=== PATIENT | male | born 1965 | race Caucasian/White ===

== ENCOUNTER 2023-03-31 12:46 | Outpatient (RCR) | payer OTHER, SELFPAY ==
[2023-03-31 13:09] VITALS: BP 158/89; PULSE 99; RESP 16; BMI 32.8
--- NOTE | 2023-03-31 14:24 | HP.PCM_ITS ---
History of Present Illness Date of Service: 03/31/23 Chief Complaint: Left foot wound History of Wound: Left foot wound for 5 months Progress of Wound: Lane is a 58-year-old diabetic male presenting to the wound care center today for evaluation of his full-thickness ulceration to the left big toe of his left foot. Patient admits to being a diabetic with an A1c of 9.6%. He admits to not wearing diabetic shoes. He also admits that he does not check his blood sugar on a regular daily basis. Patient is in the process of getting a new glucose meter ready for daily checking. Patient has not had any treatment to his full-thickness ulceration to the left foot. He admits to burning and tingling secondary to neuropathy to his bilateral lower extremity. He denies any drainage from the wound. He has not taken any oral antibiotics for infection. He admits that the wound originally happened after wearing a pair of socks that got wet and rubbing in shoe gear while at work. He denies trauma. Denies constitutional symptoms. No other pedal complaints at this time. [facility] Medical History Arthritis Diabetes HTN (hypertension) Tear of meniscus of knee Home Medications glyburide 2.5 mg-metformin 500 mg tablet 2 tab PO BID 90 days #360 tabs 01/25/18 [History Last Taken Unknown] lisinopril 30 mg tablet 30 mg PO DAILY 90 days #90 tabs 01/25/18 [History Last Taken Unknown] pioglitazone 30 mg tablet 45 mg PO DAILY 90 days #90 tabs 01/25/18 [History Last Taken Unknown] atorvastatin 10 mg tablet (Lipitor) 10 mg PO DAILY 03/31/23 [History Last Taken Unknown] Allergy/AdvReac Type Severity Reaction Status Date / Time No Known Allergies Allergy Verified 03/31/23 13:20 Family History Other Cancer Heart disease Surgical History History of carpal tunnel surgery History of sinus surgery Social History Smoking Status: Never smoker alcohol intake: current alcohol intake frequency: a few times a week Alcohol type: beer and hard liquor Vital Signs Vital Signs Vital Signs: 03/31/23 13:09 Pulse Rate 99 Respiratory Rate 16 Blood Pressure 158/89 H Blood Pressure Mean 112 Blood Pressure Source Monitor Blood Pressure Position Sitting Blood Pressure Location Left Arm Oxygen Delivery Method Room Air Weight Weight: 116.12 kg Body Mass Index (BMI) 32.8 Physical Exam Narrative Vascular: DP and PT pulses are palpable. CFT is brisk. Evidence of blanchable erythema appreciated left hallux. Nonpitting edema appreciated to left lower extremity. Neurological: Light touch is intact. Protective sensation is absent. Patient does not respond to painful stimuli. Dermatological: Full-thickness ulceration to the plantar medial aspect of the left hallux measuring 1.9 x 1.1 x 0.6 cm. Evidence of exposure to muscle. Evidence of hyperkeratotic periwound. Blanchable erythema without proximal stre aking. No evidence of drainage or purulent drainage. No probe to bone. Excisional debridement down to and including subcutaneous tissue, fascia and muscle with a #15 blade to the left hallux full-thickness ulceration without incident. Predebridement measurement was 1.5 x 0.9 x 0.4 cm. Postdebridement measurement is 1.9 x 1.1 x 0.6 cm. Musculoskeletal: Decreased range of motion to the first metatarsal phalangeal joint as well as the IPJ of the left hallux. No pain with palpation of the full-thickness ulceration left hallux. No pain with calf pression. Debridement Note Debridement Note Debridement Free Text: Excisional debridement down to and including subcutaneous tissue, fascia and muscle with a #15 blade to the left hallux full-thickness ulceration without incident. Predebridement measurement was 1.5 x 0.9 x 0.4 cm. Postdebridement measurement is 1.9 x 1.1 x 0.6 cm. Post-Debridement Measurements and Additional Note: Post-Debridement Measurements/Treatment - Nurse 1 - General Ulcer Assessment Start: 03/31/23 13:08 Freq: Status: Active Protocol: ANA LUISA.LOWEXT Activity Type Activity Date Activity User E-sign Co-sign Detail Recorded Client Recorded Date Recorded By Document 03/31/23 13:09 [facility] Desktop 03/31/23 13:19 [facility] 03/31/23 13:09 WC - Today's Visit Information Type of service Initial Visit Arrival Mode Ambulatory Transfer Assistance None Patient Identification Verified (Name & Yes ) Patient Requires Transmission-Based No Precautions Height and Weight Height 6 ft 2 in Weight 116.12 kg Weight in Pounds 256.0 lbs Body Mass Index (BMI) 32.8 BMI Classification Obese BSA - Papo 2.41 Vital Signs Pulse Rate (60-100) 99 Pulse Location Monitor Respiratory Rate (12-18) 16 Respiratory rate source Observation Oxygen Delivery Method Room Air Blood Pressure (90/60-120/80) 158/89 H Blood Pressure Mean 112 Source Monitor Position Sitting Blood Pressure Location Left Arm History Since Last Visit- (Skip if this is Patient's initial visit) Left Footwear Regular Shoe Right Footwear Regular Shoe Pain Scale: 0-10 Numeric Is Patient Pain Free? Yes Lower Extremity Assessment/ Foot Assessment/ Toe Nail Assessment Right -Posterior Tibial Palpable Yes -Posterior Tibial Doppler Inaudible -Dorsalis Pedis Palpable Yes -Dorsalis Pedis Doppler Monophasic -Extremity Color Pale -Hair Growth on Legs No -Hair Growth on Toes No -Temperature of Extremity Warm -Other Deformity No -Prior Foot Ulcer No -Charcot Joint No -Prior Amputation No -Thick No -Discolored No -Deformed No -Improper Length & Hygeine No Left -Posterior Tibial Palpable Yes -Posterior Tibial Doppler Inaudible -Dorsalis Pedis Palpable Yes -Dorsalis Pedis Doppler Monophasic -Extremity Color Pale -Hair Growth on Legs No -Hair Growth on Toes No -Temperature of Extremity Warm -Other Deformity No -Prior Foot Ulcer No -Charcot Joint No -Prior Amputation No -Thick No -Discolored No -Deformed No -Improper Length & Hygeine No Communication Assessment Preferred language [place] Deburring Technician Required No Able to Read Yes Able to Write Yes Communication Tools None Right Hearing Abillity Normal Left Hearing Abillity Normal Visual Assistive Devices Glasses Teaching Assessment Preferences Verbal,Written, Audio/Visual, Demonstration Barriers to Learning None Readiness To Learn Excellent Willingness to Engage in Self Management High Activies Readiness to Engage in Self Management High Activities Anxiety Level Calm Cooperation Cooperative Perception Coherent Interest in Health Problem Asks Questions Education Importance Acknowledges Need Does Patient Smoke tobacco or other No substances Smoking Status Never smoker Is Patient Diabetic Yes Functional Assessment Recent Decline in Ability to Perform Denies Any Declines Culture/Religion/Clinical Research Scientist Cultural/Religion Needs that may affect No Treatment Plan Teaching: Wound Center *Welcome to the Wound Center -Person Taught Patient -Teaching Method Discussion -Response to teaching Verbalize understanding Welcome to the Wound Care Center English OROSCO - Nurse 1 - General Ulcer Measurement Start: 03/31/23 13:08 Freq: Status: Active Protocol: Activity Type Activity Date Activity User E-sign Co-sign Detail Recorded Client Recorded Date Recorded By Document 03/31/23 13:09 [facility] Desktop 03/31/23 13:19 [facility] 03/31/23 13:09 Wound Center Nurse 1 #1- L PLANTAR HALLUX -Combined with other wound No -Current Size (cm) - Length 1.2 -Current Size (cm) - Width 0.8 -Current Size (cm) - Depth 0.5 -Total Square Cm 0.96 -Date of Last Picture (Recall this 03/31/23 field) -Photo Taken Yes -Epithelialization None Present -Tunneling No -Undermining/Tunneling No -Circular Undermining No -Exudate Amt Medium -Exudate Type Serosanguineous -Wound Margin Distinct, Outline Attached -Granulation Amt Large (67-100%) -Granulation Quality Red -Slough/Fibrin Yes -Necrosis Amt Small (1-33%) -Necrotic Tissue Type Adherent Slough -Texture (Sarah-wound Skin Appearance) Assessed -Moisture (Sarah-wound Skin Appearance) Assessed, Maceration -Color (Sarah-wound Skin Appearance) Assessed -Temperature (Sarah-wound Skin No Abnormality Appearance) (Pt Warm) -Tenderness on Palpation (Sarah-wound No Skin Appearance) -Ulcer Cleansing Rinsed/ Irrigated with Saline -Foul Odor after Cleansing No -Anesthetic Used 5% Lidocaine Gel ANA LUISA - Nurse 2 - General Ulcer CM Notes Start: 03/31/23 13:08 Freq: Status: Active Protocol: Activity Type Activity Date Activity User E-sign Co-sign Detail Recorded Client Recorded Date Recorded By Document 03/31/23 13:40 Laptop 03/31/23 13:51 03/31/23 13:40 Wound Center Nurse 2 -Time 13:47 -Correct Patient Yes -Correct Side, Site, Position Yes -Correct Procedure Yes -Procedure Performed Yes -Type of Procedure Debridement -Clinical Debridement Muscle / Fascia -Tissue Removed Muscle -Post Debridement (cm) - Length 1.9 -Post Debridement (cm) - Width 1.1 -Post Debridement (cm) - Depth 0.6 -Total Square (Post) (cm) 2.09 -Area of Debridement (cm) - Length 1.9 -Area of Debridement (cm) - Width 1.1 -Total Square (Area) (cm) 2.09 -Tunneling No -Undermining/Tunneling No -Circular Undermining No -Wound/Ulcer Outcome Not Healed -Ulcer Cleansing Rinsed/ Irrigated with Saline -Foul Odor after Cleansing No -Bioengineered Tissue No -Bleeding Controlled with Pressure -Treatment Response Procedure Tolerated Well -Offloading No -Debridement - Muscle / Fascia, 1st Yes 20sq cm Pain Scale: 0-10 Numeric Is Patient Pain Free? Yes WC - Nurse 3 - General Ulcer D/C NN Start: 03/31/23 13:08 Freq: Status: Active Protocol: Activity Type Activity Date Activity User E-sign Co-sign Detail Recorded Client Recorded Date Recorded By Document 03/31/23 13:59 KW Desktop 03/31/23 14:01 KW 03/31/23 13:59 Wound Care Center Nurse 3 #1- L PLANTAR HALLUX -Primary Dressing Applied Promogran Melinda Matter -Primary Dressing Covered/Secured with Dry Gauze, Secured with Tape -Promogran Melinda Matter 1 Pain Scale: 0-10 Numeric Is Patient Pain Free? 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 All findings were discussed with the patient. All questions were answered to the patient's satisfaction. Excisional debridement down to and including subcutaneous tissue, fascia and muscle with a #15 blade to the left hallux full-thickness ulceration without incident. Predebridement measurement was 1.5 x 0.9 x 0.4 cm. Postdebridement measurement is 1.9 x 1.1 x 0.6 cm. Full-thickness ulceration was dressed with Melinda, Betadine paint dry sterile dressing. Will begin authorization through the patient's insurance for [employer], home dressing supplies. Patient will be given the supplies described above to be changed daily or every other day. Patient is given the go ahead to shower as long as he is using antibacterial soap and washing his left toe last and then drying immediately prior to dressing changes. Educated the patient on strict glycemic control, his blood sugar needs to be below 150 mg/dL daily especially when checked. Educated the patient that if his blood sugar is greater than 200 mg/dL he will not heal for 24 hours. Patient can wear his regular athletic shoes as long as he has a sterile dressing donned to the left hallux. He is to continue to check his feet twice per day and apply lotion. We will get baseline 3 view foot films to the left foot for surgical planning. A culture was taken to rule out any soft tissue infection to the left great toe. We will get baseline vascular and venous studies to the bilateral lower extremities. He was also educated to the patient conservative versus surgical care and my recommendation is to move forward with surgical intervention to the left great toe consisting of IPJ arthroplasty to increase range of motion to the hallux to help heal his wound. Patient was understanding of this. I will begin booking the patient as able can take anywhere between 3 to 4 weeks to get the patient on the surgery schedule. Follow-up at the wound care center with Dr. Fajardo in 1 week. (2) Acute painful diabetic polyneuropathy: CODE(S): E11.42 - Type 2 diabetes mellitus with diabetic polyneuropathy
[2023-04-14 09:55] VITALS: BP 144/73; PULSE 79; RESP 18; TEMP -7.7; TEMP 18; BMI 32.8
== END 2023-04-04 23:59 | disposition home or self-care (01) ==
LOC: WC 12:46
PROVIDERS: PCP Family Medicine; Referring Provider Nurse Practitioner Family; Visit Provider Podiatrist Foot & Ankle Surgery
DX: E11.621 Type 2 diabetes mellitus with foot ulcer (principal); L97.523 Non-pressure chronic ulcer of other part of left foot with necrosis of muscle; E11.42 Type 2 diabetes mellitus with diabetic polyneuropathy; I10 Essential (primary) hypertension; Z79.84 Long term (current) use of oral hypoglycemic drugs; Z79.899 Other long term (current) drug therapy
CPT/HCPCS: 11043; 87070; 87075; 87077; 87101; 87186; 87205; 99214; G0463

== ENCOUNTER 2023-05-05 10:00 | Outpatient (RCR) | payer OTHER, SELFPAY ==
[2023-04-05 00:50] VITALS: BP 158/89; PULSE 99; RESP 16; BMI 32.8
[2023-04-07 09:54] VITALS: BP 149/80; PULSE 89; RESP 18; TEMP 35.6; BMI 32.8
--- NOTE | 2023-04-07 11:39 | PN.PCM_ITS ---
History of Present Illness Date of Service: 04/07/23 Chief Complaint: Left foot wound History of Wound: Left foot wound for 5 months Subjective Subjective Mr. Sherman is a 58-year-old diabetic male presenting to clinic today for follow-up of left full-thickness ulceration, radiograph evaluation and antibiotic/microbiology review. Patient has been doing home dressing changes as instructed. His blood sugar today was 109 mg/dL. He does admit to having blood sugar as high as 177 mg/dL. He continues to work uneventfully. He denies trauma. Denies constitutional symptoms. No other pedal complaints at this time. Objective Data Objective Data Vital Signs: Vital Signs Temp Pulse Resp BP O2 Del Method 96.1 F L 89 18 149/80 H Room Air 04/07/23 09:54 04/07/23 09:54 04/07/23 09:54 04/07/23 09:54 04/07/23 09:54 Oxygen Delivery Method Room Air Weight: 116.12 kg Body Mass Index (BMI) 32.8 Physical Exam Narrative Vascular: DP and PT pulses are palpable. CFT is brisk. Evidence of blanchable erythema appreciated left hallux. Nonpitting edema appreciated to left lower extremity. Neurological: Light touch is intact. Protective sensation is absent. Patient does not respond to painful stimuli. Dermatological: Full-thickness ulceration to the plantar medial aspect of the left hallux measuring 1.6 x 0.7 x 0.3 cm. Evidence of exposure to muscle. Evidence of hyperkeratotic periwound. Blanchable erythema without proximal streaking. No evidence of drainage or purulent drainage. No probe to bone. Excisional debridement down to and including subcutaneous tissue, fascia and muscle with a #15 blade to the left hallux full-thickness ulceration without incident. Predebridement measurement was 1.4 x 0.6 x 0.2 cm. Postdebridement measurement is 1.6 x 0.7 x 0.3 cm. Musculoskeletal: Decreased range of motion to the first metatarsal phalangeal joint as well as the IPJ of the left hallux. No pain with palpation of the full-thickness ulceration left hallux. No pain with calf pression. Debridement Note Debridement Note Debridement Free Text: Excisional debridement down to and including subcutaneous tissue, fascia and muscle with a #15 blade to the left hallux full-thickness ulceration without incident. Predebridement measurement was 1.4 x 0.6 x 0.2 cm. Postdebridement measurement is 1.6 x 0.7 x 0.3 cm. 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 ) Arrival Mode Ambulatory Accompanied by Patient Identification Verified (Name & Yes ) Height and Weight Body Mass Index (BMI) 32.8 BMI Classification Obese Vital Signs Temperature (97.8 F-99.1 F) 96.1 F L Temperature Source Temporal Pulse Rate (60-100) 89 Pulse Location Monitor Respiratory Rate (12-18) 18 Respiratory rate source Observation Oxygen Delivery Method Room Air Blood Pressure (90/60-120/80) 149/80 H Blood Pressure Mean (mm Hg) 103 Source Monitor Position Semi-Fowlers Blood Pressure Location Left Arm History Since Last Visit- (Skip if this is Patient's initial visit) Have you changed medications since your No last visit? Any new allergies or adverse reactions No Had a fall/change in ADL's that may No increase risk of falls Signs or symptoms of abuse and/or No neglect since last visit Have you been in the hospital since your No last visit? Has dressing in place as prescribed Yes Has compression in place as prescribed N/A Has offloadiing in place as prescribed N/A Experienced any changes in pain level or No management Left Footwear Regular Shoe Right Footwear Regular Shoe Pain Scale: 0-10 Numeric Is Patient Pain Free? Yes - Nurse 1 - General Ulcer Measurement Start: 04/07/23 09:54 Freq: Status: Active Protocol: Activity Type Activity Date Activity User E-sign Co-sign Detail Recorded Client Recorded Date Recorded By Document 04/07/23 09:54 KW [employer] 04/07/23 10:00 KW 04/07/23 09:54 Wound Center Nurse 1 #1- L PLANTAR HALLUX -Current Size (cm) - Length 1.0 -Current Size (cm) - Width 0.8 -Current Size (cm) - Depth 0.2 -Total Square Cm 0.80 -Exudate Amt Small -Exudate Type Serosanguineous -Wound Margin Distinct, Outline Attached -Granulation Amt Medium (34-66%) -Granulation Quality [place] -Necrosis Amt Small (1-33%) -Necrotic Tissue Type Adherent Slough -Texture (Sarah-wound Skin Appearance) Assessed,Callus -Moisture (Sarah-wound Skin Appearance) Assessed, Maceration -Color (Sarah-wound Skin Appearance) Assessed -Temperature (Sarah-wound Skin No Abnormality Appearance) (Pt Warm) -Ulcer Cleansing Rinsed/ Irrigated with Saline -Foul Odor after Cleansing No -Anesthetic Used 5% Lidocaine Gel WC - Nurse 2 - General Ulcer CM Notes Start: 04/07/23 09:54 Freq: Status: Active Protocol: Activity Type Activity Date Activity User E-sign Co-sign Detail Recorded Client Recorded Date Recorded By Document 04/07/23 10:20 LUL Laptop 04/07/23 10:21 LUL Edit Result 04/07/23 10:20 JF (1) Laptop 04/07/23 10:24 JF (1) #1- L PLANTAR HALLUX - Clinical Debridement Subcutaneous => Muscle / Fascia - Tissue Removed Subcutaneous => Muscle - Post Debridement (cm) - Length => 1.6 - Post Debridement (cm) - Width => 0.7 - Post Debridement (cm) - Depth => 0.3 - Total Square (Post) (cm) => 1.12 - Area of Debridement (cm) - Length => 1.6 - Area of Debridement (cm) - Width => 0.7 - Total Square (Area) (cm) => 1.12 - Debridement - Subq, 1st 20sq cm Yes => No - Debridement - Muscle / Fascia, 1st => Yes 20sq cm 04/07/23 10:20 Wound Center Nurse 2 -Time 10:20 -Correct Patient Yes -Correct Side, Site, Position Yes -Correct Procedure Yes -Procedure Performed Yes -Type of Procedure Debridement -Clinical Debridement Muscle / Fascia -Tissue Removed Muscle -Post Debridement (cm) - Length 1.6 -Post Debridement (cm) - Width 0.7 -Post Debridement (cm) - Depth 0.3 -Total Square (Post) (cm) 1.12 -Area of Debridement (cm) - Length 1.6 -Area of Debridement (cm) - Width 0.7 -Total Square (Area) (cm) 1.12 -Tunneling No -Undermining/Tunneling No -Circular Undermining No -Wound/Ulcer Outcome Not Healed -Ulcer Cleansing Rinsed/ Irrigated with Saline -Foul Odor after Cleansing No -Bioengineered Tissue No -Bleeding Controlled with Pressure -Treatment Response Procedure Tolerated Well -Offloading No -Debridement - Subq, 1st 20sq cm No -Debridement - Muscle / Fascia, 1st Yes 20sq cm Pain Scale: 0-10 Numeric Is Patient Pain Free? Yes - Nurse 3 - General Ulcer D/C NN Start: 04/07/23 09:54 Freq: Status: Active Protocol: Activity Type Activity Date Activity User E-sign Co-sign Detail Recorded Client Recorded Date Recorded By Document 04/07/23 10:37 GM Desktop 04/07/23 10:38 GM 04/07/23 10:37 Wound Care Center Nurse 3 #1- L PLANTAR HALLUX -Ulcer Cleansing Not Cleansed -Foul Odor after Cleansing No -Negative Pressure Wound Therapy N/A -Primary Dressing Applied Promogran Melinda Matter -Primary Dressing Covered/Secured with Dry Gauze & Roll Gauze, Secured with Tape -Promogran Melinda Matter 1 Pain Scale: 0-10 Numeric Is Patient Pain Free? 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 All findings were discussed with the patient. All questions were answered to the patient's satisfaction. Excisional debridement down to and including subcutaneous tissue, fascia and muscle with a #15 blade to the left hallux full-thickness ulceration without incident. Predebridement measurement was 1.4 x 0.6 x 0.2 cm. Postdebridement measurement is 1.6 x 0.7 x 0.3 cm. Ulceration was likely and patted dry. Was dressed with Melinda and dry sterile dressing. After reviewing the patient's radiographs there is concern for osteoarthritis versus bone infection. Since the radiologist did not diagnose bone infection the only way that diagnoses will be obtained is either by advanced medical imaging or bone biopsy. The patient would like to hold off on advanced imaging and bone biopsy and will continue oral antibiotics that were prescribed today, doxycycline and ciprofloxacin to be taken for 2 weeks. Patient will continue to have strict blood sugar control. He will continue home dressing change with Melinda and dry sterile dressing. Patient will be having his noninvasive vascular studies this Wednesday. Follow-up at the wound care center with Dr. Fjaardo in 1 week. (2) Acute painful diabetic polyneuropathy: CODE(S): E11.42 - Type 2 diabetes mellitus with diabetic polyneuropathy
--- NOTE | 2023-04-09 12:47 | ART_ITS ---
Reason For Study: LLE Wound Procedure A bilateral lower extremity continuous wave Doppler with analog waveform analysis and ankle brachial indexes. Left Segmental Pressures Left brachial= 135mmHg. Left posterior tibial artery = 198mmHg. Left dorsalis pedis artery = 181mmHg. Unable to acquire due to wounds. The left posterior tibial artery waveforms are triphasic. The left dorsalis pedis waveforms are triphasic. Right Segmental Pressures Right brachial= 142mmHg. Right posterior tibial artery = >254mmHg. Right dorsalis pedis artery = >254mmHg. Right digit = 139 mmHg. The right posterior tibial artery waveforms are triphasic. The right dorsalis pedis waveforms are triphasic. Indices The right ankle brachial index by the posterior tibial artery is N/C. The right ankle brachial index by the dorsalis pedis is N/C. The right digital-brachial index is 0.98. The left ankle brachial index by the posterior tibial artery is 1.39. The left ankle brachial index by the dorsalis pedis is 1.27. Unable to acquire. VL/Lower Ext Art Exam w/o Exercis Interpretation Summary Triphasic Doppler waveforms are noted at ankle level bilaterally. Pulse-volume recordings appear satisfactory at all levels bilaterally, though not obtained at digital level on the left due to the presence of wound bandages. The resting right ankle brachial index could not be determined due to the non-compressibility of the vasculature at ankle level on the right. The res ting left ankle- brachial index is normal. The right digital-brachial index is normal. The left digital-brachial index was not determined due to the presence of wound bandages. There is evidence of arterial calcification at ankle level on the right. There is no evidence of significant arterial occlusive disease in the lower extremities bilaterally. Ar terial flow at digital level on the left was not fully assessed due to the presence of wound b andages. Ordering Physician: Tavon Fajardo Referring Physician: MD Glenn Mazariegos Performed By: Eugene, Ovidio, RVT
--- NOTE | 2023-04-09 12:48 | VDLE_ITS ---
Reason For Study: LLE Wound RIGHT LEFT CFV is compressible, spontaneous, phasic, CFV is compressible, spontaneous, phasic, competent and demonstrates normal competent, and demonstrates normal augmentation. augmentation. FV is compressible, spontaneous, phasic, FV is compressible, spontaneous, phasic, competent and demonstrates normal competent and demonstrates normal augmentation. augmentation. POP V is compressible, spontaneous, phasic, POP V is compressible, spontaneous, phasic, competent and demonstrates normal competent and demonstrates normal augmentation. augmentation. T/P Trunk is compressible. T/P Trunk is compressible. PTV is compressible. PTV is compressible. RT PerV is compressible. LT PerV is compressible. SFJ is INCOMPETENT and measures 0.61 cm. SFJ is INCOMPETENT and measures 0.66 cm. GSV proximal thigh measures 0.24 x 0.26 cm. GSV proximal thigh measures 0.37 x 0.40 cm. GSV at knee measures 0.26 x 0.27 cm. GSV at knee measures 0.37 x 0.40 cm. GSV INCOMPETENT throughout for greater than GSV INCOMPETENT throughout for greater than 0.5 seconds. 0.5 seconds. duplicator SSV noted SSV proximal calf is competent and measures SSV 1 proximal calf is competent and measures 0.31 x 0.32 cm. 0.38 x 0.51 cm. LT Varicosities noted at prox medial thigh SSV 2 proximal calf is competent and measures measuring 0.51cm in long axis and are 0.14 x 0.15 cm. INCOMPETENT for greater than 0.5 seconds. Procedure This is a venous duplex using B-mode, color flow and spectral Doppler. Exam performed in department. The exam was diagnostic. VL/Venous Duplex US - Clifford Extrem Interpretation Summary Deep veins of the lower extremities are bilaterally patent and compressible seg mentally. There is no evidence of deep vein thrombosis on either side. Valvular competence appears in tact within the proximal deep venous systems bilaterally. The great saphenous veins appear bila terally patent and compressible segmentally. Sapheno-femoral junctions are bilaterally incompetent . Segmental valvular incompetence is noted within the great saphenous veins bilaterally. Small saphe nous veins are patent and competent bilaterally. Varicosities are noted in the left medial thigh demo nstrating incompetence. Ordering Physician: Tavon Fajardo Referring Physician: MD Yair Glenn Performed By: Ovidio Knight RVT
--- NOTE | 2023-04-14 10:57 | PCM.WC.PN ---
History of Present Illness Date of Service: 04/14/23 Chief Complaint: Left foot wound History of Wound: Left foot wound for 5 months Subjective Subjective Mr. Pappas is a 58-year-old diabetic male presenting to wound care center today for follow-up and evaluation of full-thickness ulceration to the plantar aspect of his left big toe. He has had his vascular studies done arterial and venous, and is here for results. He admits to having controlled blood sugar. He denies any trauma. Denies constitutional symptoms. No other pedal complaints at this time. Objective Data Objective Data Vital Signs: Vital Signs Temp Pulse Resp BP O2 Del Method 96.1 F L 89 18 149/80 H Room Air 04/07/23 09:54 04/07/23 09:54 04/07/23 09:54 04/07/23 09:54 04/07/23 09:54 Oxygen Delivery Method Room Air Weight: 116.12 kg Body Mass Index (BMI) 32.8 Physical Exam Narrative Vascular: DP and PT pulses are palpable. CFT is brisk. Evidence of blanchable erythema appreciated left hallux. Nonpitting edema appreciated to left lower extremity. Neurological: Light touch is intact. Protective sensation is absent. Patient does not respond to painful stimuli. Dermatological: Full-thickness ulceration to the plantar medial aspect of the left hallux measuring 1.6 x 1.5 x 0.3 cm. Evidence of exposure to muscle. Evidence of hyperkeratotic periwound. Blanchable erythema without proximal streaking. No evidence of drainage or purulent drainage. No probe to bone. Excisional debridement down to and including subcutaneous tissue, fascia and muscle with a #15 blade to the left hallux full-thickness ulceration without incident. Predebridement measurement was 1.4 x 0.6 x 0.2 cm. Postdebridement measurement is 1.6 x 1.5 x 0.3 cm. Musculoskeletal: Decreased range of motion to the first metatarsal phalangeal joint as well as the IPJ of the left hallux. No pain with palpation of the full-thickness ulceration left hallux. No pain with calf pression. Debridement Note Debridement Note Debridement Free Text: Excisional debridement down to and including subcutaneous tissue, fascia and muscle with a #15 blade to the left hallux full-thickness ulceration without incident. Predebridement measurement was 1.4 x 0.6 x 0.2 cm. Postdebridement measurement is 1.6 x 1.5 x 0.3 cm. Post-Debridement Measurements and Additional Note: Post-Debridement Measurements/Treatment - Nurse 1 - General Ulcer Assessment Start: 04/07/23 09:54 Freq: Status: Active Protocol: RIDGE Activity Type Activity Date Activity User E-sign Co-sign Detail Recorded Client Recorded Date Recorded By Document 04/07/23 09:54 KW Desktop 04/07/23 10:00 KW 04/07/23 09:54 WC - Today's Visit Information Type of service Follow-up Visit (Physician/COCKTAIL WAITRESS ) Arrival Mode Ambulatory Accompanied by Patient Identification Verified (Name & Yes ) Height and Weight Body Mass Index (BMI) 32.8 BMI Classification Obese Vital Signs Temperature (97.8 F-99.1 F) 96.1 F L Temperature Source Temporal Pulse Rate (60-100) 89 Pulse Location Monitor Respiratory Rate (12-18) 18 Respiratory rate source Observation Oxygen Delivery Method Room Air Blood Pressure (90/60-120/80) 149/80 H Blood Pressure Mean (mm Hg) 103 Source Monitor Position Semi-Fowlers Blood Pressure Location Left Arm History Since Last Visit- (Skip if this is Patient's initial visit) Have you changed medications since your No last visit? Any new allergies or adverse reactions No Had a fall/change in ADL's that may No increase risk of falls Signs or symptoms of abuse and/or No neglect since last visit Have you been in the hospital since your No last visit? Has dressing in place as prescribed Yes Has compression in place as prescribed N/A Has offloadiing in place as prescribed N/A Experienced any changes in pain level or No management Left Footwear Regular Shoe Right Footwear Regular Shoe Pain Scale: 0-10 Numeric Is Patient Pain Free? Yes - Nurse 1 - General Ulcer Measurement Start: 04/07/23 09:54 Freq: Status: Active Protocol: Activity Type Activity Date Activity User E-sign Co-sign Detail Recorded Client Recorded Date Recorded By Document 04/07/23 09:54 KW [email or web address] 04/07/23 10:00 KW 04/07/23 09:54 Wound Center Nurse 1 #1- L PLANTAR HALLUX -Current Size (cm) - Length 1.0 -Current Size (cm) - Width 0.8 -Current Size (cm) - Depth 0.2 -Total Square Cm 0.80 -Exudate Amt Small -Exudate Type Serosanguineous -Wound Margin Distinct, Outline Attached -Granulation Amt Medium (34-66%) -Granulation Quality [place] -Necrosis Amt Small (1-33%) -Necrotic Tissue Type Adherent Slough -Texture (Sarah-wound Skin Appearance) Assessed,Callus -Moisture (Sarah-wound Skin Appearance) Assessed, Maceration -Color (Sarah-wound Skin Appearance) Assessed -Temperature (Sarah-wound Skin No Abnormality Appearance) (Pt Warm) -Ulcer Cleansing Rinsed/ Irrigated with Saline -Foul Odor after Cleansing No -Anesthetic Used 5% Lidocaine Gel WC - Nurse 2 - General Ulcer CM Notes Start: 04/07/23 09:54 Freq: Status: Active Protocol: Activity Type Activity Date Activity User E-sign Co-sign Detail Recorded Client Recorded Date Recorded By Document 04/07/23 10:20 Laptop 04/07/23 10:21 Edit Result 04/07/23 10:20 (1) Laptop 04/07/23 10:24 Document 04/14/23 10:06 Laptop 04/14/23 10:16 (1) #1- L PLANTAR HALLUX - Clinical Debridement Subcutaneous => Muscle / Fascia - Tissue Removed Subcutaneous => Muscle - Post Debridement (cm) - Length => 1.6 - Post Debridement (cm) - Width => 0.7 - Post Debridement (cm) - Depth => 0.3 - Total Square (Post) (cm) => 1.12 - Area of Debridement (cm) - Length => 1.6 - Area of Debridement (cm) - Width => 0.7 - Total Square (Area) (cm) => 1.12 - Debridement - Subq, 1st 20sq cm Yes => No - Debridement - Muscle / Fascia, 1st => Yes 20sq cm 04/07/23 04/14/23 10:20 10:06 Wound Center Nurse 2 #1- L PLANTAR HALLUX -Time 10:20 10:06 -Correct Patient Yes Yes -Correct Side, Site, Position Yes Yes -Correct Procedure Yes Yes -Procedure Performed Yes Yes -Type of Procedure Debridement Debridement -Clinical Debridement Muscle / Fascia Muscle / Fascia -Tissue Removed Muscle Muscle -Post Debridement (cm) - Length 1.6 1.6 -Post Debridement (cm) - Width 0.7 1.5 -Post Debridement (cm) - Depth 0.3 0.3 -Total Square (Post) (cm) 1.12 2.40 -Area of Debridement (cm) - Length 1.6 1.6 -Area of Debridement (cm) - Width 0.7 1.5 -Total Square (Area) (cm) 1.12 2.40 -Tunneling No No -Undermining/Tunneling No No -Circular Undermining No No -Wound/Ulcer Outcome Not Healed Not Healed -Ulcer Cleansing Rinsed/ Rinsed/ Irrigated with Irrigated with Saline Saline -Foul Odor after Cleansing No No -Bioengineered Tissue No No -Bleeding Controlled with Pressure Pressure -Treatment Response Procedure Procedure Tolerated Well Tolerated Well -Offloading No No -Debridement - Subq, 1st 20sq cm No -Debridement - Muscle / Fascia, 1st Yes Yes 20sq cm Pain Scale: 0-10 Numeric Is Patient Pain Free? Yes Yes - Nurse 3 - General Ulcer D/C NN Start: 04/07/23 09:54 Freq: Status: Active Protocol: Activity Type Activity Date Activity User E-sign Co-sign Detail Recorded Client Recorded Date Recorded By Document 04/07/23 10:37 Desktop 04/07/23 10:38 Document 04/14/23 10:30 Desktop 04/14/23 10:32 04/07/23 04/14/23 10:37 10:30 Wound Care Center Nurse 3 #1- L PLANTAR HALLUX -Ulcer Cleansing Not Cleansed Not Cleansed -Foul Odor after Cleansing No No -Negative Pressure Wound Therapy N/A -Primary Dressing Applied Promogran Melinda Matter -Other Dressing applied patient 's promogran -Primary Dressing Covered/Secured with Dry Gauze & Dry Gauze & Roll Gauze, Roll Gauze, Secured with Secured with Tape Tape -Promogran Melinda Matter 1 Pain Scale: 0-10 Numeric Is Patient Pain Free? 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 All findings were discussed with the patient. All questions were answered to the patient's satisfaction. Excisional debridement down to and including subcutaneous tissue, fascia and muscle with a #15 blade to the left hallux full-thickness ulceration without incident. Predebridement measurement was 1.4 x 0.6 x 0.2 cm. Postdebridement measurement is 1.6 x 1.5 x 0.3 cm. Ulceration was dressed with Melinda, Betadine paint dry sterile dressing. Patient will continue to change his dressing as instructed. In regards to surgical intervention we will move forward with left hallux IPJ arthroplasty, surgical skin graft prep site with application of skin graft substitute to the left hallux. Patient will follow-up in office for surgical consultation and [place] paperwork. Follow-up at the wound care center with Dr. Fajardo in 1 week. (2) Peripheral vascular disease: CODE(S): I73.9 - Peripheral vascular disease, unspecified PLAN: After reviewing the patient's arterial studies that shows evidence of triphasic pulses bilateral. However there is evidence of noncompressible vessels appreciated to the right lower extremity. ABIs were not able to be obtained to the right lower extremity. TBI's the right is 0.98. FAISAL to the left is 1.39 with not able to retrieve the TBI secondary to dressing. We will make referral to Dr. Arreola for follow-up and evaluation due to the noncompressible vessels to the right lower extremity. After reviewing the patient's venous Doppler studies there shows evidence of incompetence noted to the great saphenous veins bilaterally, small saphenous veins are patent and competent bilateral and evidence of varicosities noted to the left marginal thigh demonstrating competence. (3) Acute painful diabetic polyneuropathy: CODE(S): E11.42 - Type 2 diabetes mellitus with diabetic polyneuropathy
[2023-04-21 09:58] VITALS: BP 121/72; PULSE 101; RESP 18; TEMP 35.4; BMI 32.8
--- NOTE | 2023-04-21 10:19 | PCM.WC.PN ---
History of Present Illness Date of Service: 04/21/23 Chief Complaint: Left foot wound History of Wound: Left foot wound for 5 months Subjective Subjective Mr. Pappas is a 58-year-old diabetic male presenting to wound care center today for follow-up and evaluation of full-thickness ulceration to the plantar aspect of his left big toe. He admits to having controlled blood sugar. He has been doing home dressing changes as instructed without complications. He denies any trauma. Denies constitutional symptoms. No other pedal complaints at this time. Objective Data Objective Data Vital Signs: Vital Signs Temp Pulse Resp BP O2 Del Method 95.8 F L 101 H 18 121/72 H Room Air 04/21/23 09:58 04/21/23 09:58 04/21/23 09:58 04/21/23 09:58 04/21/23 09:58 Oxygen Delivery Method Room Air Weight: 116.12 kg Body Mass Index (BMI) 32.8 Physical Exam Narrative Vascular: DP and PT pulses are palpable. CFT is brisk. Evidence of blanchable erythema appreciated left hallux. Nonpitting edema appreciated to left lower extremity. Neurological: Light touch is intact. Protective sensation is absent. Patient does not respond to painful stimuli. Dermatological: Full-thickness ulceration to the plantar medial aspect of the left hallux measuring 1.5 x 1.2 x 0.2 cm. Evidence of exposure to muscle. Evidence of hyperkeratotic periwound. Blanchable erythema without proximal streaking. No evidence of drainage or purulent drainage. No probe to bone. Excisional debridement down to and including subcutaneous tissue, fascia and muscle with a #15 blade to the left hallux full-thickness ulceration without incident. Predebridement measurement was 1.3 x 0.1.0 x 0.1 cm. Postdebridement measurement is 1.5 x 1.2 x 0.2 cm. Musculoskeletal: Decreased range of motion to the first metatarsal phalangeal joint as well as the IPJ of the left hallux. No pain with palpation of the full-thickness ulceration left hallux. No pain with calf pression. Debridement Note Debridement Note Debridement Free Text: Excisional debridement down to and including subcutaneous tissue, fascia and muscle with a #15 blade to the left hallux full-thickness ulceration without incident. Predebridement measurement was 1.3 x 0.1.0 x 0.1 cm. Postdebridement measurement is 1.5 x 1.2 x 0.2 cm. Post-Debridement Measurements and Additional Note: Post-Debridement Measurements/Treatment WC - Nurse 1 - General Ulcer Assessment Start: 04/07/23 09:54 Freq: Status: Active Protocol: RIDGE Activity Type Activity Date Activity User E-sign Co-sign Detail Recorded Client Recorded Date Recorded By Document 04/07/23 09:54 KW Desktop 04/07/23 10:00 KW Document 04/21/23 09:58 KW Desktop 04/21/23 10:03 KW 04/07/23 04/21/23 09:54 09:58 WC - Today's Visit Information Type of service Follow-up Visit Follow-up Visit (Physician/MANAGED SERVICES CONSULTANT (Physician/MANAGED SERVICES CONSULTANT ) ) Arrival Mode Ambulatory Ambulatory Accompanied by Patient Identification Verified (Name & Yes Yes ) Height and Weight Body Mass Index (BMI) 32.8 32.8 BMI Classification Obese Obese Vital Signs Temperature (97.8 F-99.1 F) 96.1 F L 95.8 F L Temperature Source Temporal Temporal Pulse Rate (60-100) 89 101 H Pulse Location Monitor Monitor Respiratory Rate (12-18) 18 18 Respiratory rate source Observation Observation Oxygen Delivery Method Room Air Room Air Blood Pressure (90/60-120/80) 149/80 H 121/72 H Blood Pressure Mean (mm Hg) 103 88 Source Monitor Monitor Position Semi-Fowlers Semi-Fowlers Blood Pressure Location Left Arm Left Arm History Since Last Visit- (Skip if this is Patient's initial visit) Have you changed medications since your No No last visit? Any new allergies or adverse reactions No No Had a fall/change in ADL's that may No No increase risk of falls Signs or symptoms of abuse and/or No No neglect since last visit Have you been in the hospital since your No No last visit? Has dressing in place as prescribed Yes Yes Has compression in place as prescribed N/A Yes Has offloadiing in place as prescribed N/A No Experienced any changes in pain level or No No management Left Footwear Regular Shoe Regular Shoe Right Footwear Regular Shoe Regular Shoe Pain Scale: 0-10 Numeric Is Patient Pain Free? Yes Yes ANA LUISA - Nurse 1 - General Ulcer Measurement Start: 04/07/23 09:54 Freq: Status: Active Protocol: Activity Type Activity Date Activity User E-sign Co-sign Detail Recorded Client Recorded Date Recorded By Document 04/07/23 09:54 KW Desktop 04/07/23 10:00 KW Document 04/21/23 09:58 KW Desktop 04/21/23 10:03 KW 04/07/23 04/21/23 09:54 09:58 Wound Center Nurse 1 #1- L PLANTAR HALLUX -Current Size (cm) - Length 1.0 1.3 -Current Size (cm) - Width 0.8 1 -Current Size (cm) - Depth 0.2 0.1 -Total Square Cm 0.80 1.3 -Date of Last Picture (Recall this 04/21/23 field) -Photo Taken Yes -Exudate Amt Small Medium -Exudate Type Serosanguineous Serosanguineous -Wound Margin Distinct, Distinct, Outline Outline Attached Attached -Granulation Amt Medium (34-66%) Medium (34-66%) -Granulation Quality [place] Red -Necrosis Amt Small (1-33%) Small (1-33%) -Necrotic Tissue Type Adherent Slough Adherent Slough -Texture (Sarha-wound Skin Appearance) Assessed,Callus Assessed,Callus -Moisture (Sarah-wound Skin Appearance) Assessed, Assessed, Maceration Maceration -Color (Sarah-wound Skin Appearance) Assessed Assessed -Temperature (Sarah-wound Skin No Abnormality No Abnormality Appearance) (Pt Warm) (Pt Warm) -Tenderness on Palpation (Sarah-wound No Skin Appearance) -Ulcer Cleansing Rinsed/ Rinsed/ Irrigated with Irrigated with Saline Saline -Foul Odor after Cleansing No No -Anesthetic Used 5% Lidocaine 5% Lidocaine Gel Gel WC - Nurse 2 - General Ulcer CM Notes Start: 04/07/23 09:54 Freq: Status: Active Protocol: Activity Type Activity Date Activity User E-sign Co-sign Detail Recorded Client Recorded Date Recorded By Document 04/07/23 10:20 JF Laptop 04/07/23 10:21 JF Edit Result 04/07/23 10:20 JF (1) Laptop 04/07/23 10:24 JF Document 04/14/23 10:06 JF Laptop 04/14/23 10:16 JF Document 04/21/23 10:10 JF Laptop 04/21/23 10:14 JF Edit Result 04/21/23 10:10 LUL (2) Laptop 04/21/23 10:15 JF (1) #1- L PLANTAR HALLUX - Clinical Debridement Subcutaneous => Muscle / Fascia - Tissue Removed Subcutaneous => Muscle - Post Debridement (cm) - Length => 1.6 - Post Debridement (cm) - Width => 0.7 - Post Debridement (cm) - Depth => 0.3 - Total Square (Post) (cm) => 1.12 - Area of Debridement (cm) - Length => 1.6 - Area of Debridement (cm) - Width => 0.7 - Total Square (Area) (cm) => 1.12 - Debridement - Subq, 1st 20sq cm Yes => No - Debridement - Muscle / Fascia, 1st => Yes 20sq cm (2) #1- L PLANTAR HALLUX - Post Debridement (cm) - Depth 0.3 => 0.2 04/07/23 04/14/23 04/21/23 10:20 10:06 10:10 Wound Center Nurse 2 #1- L PLANTAR HALLUX -Time 10:20 10:06 10:11 -Correct Patient Yes Yes Yes -Correct Side, Site, Position Yes Yes Yes -Correct Procedure Yes Yes Yes -Procedure Performed Yes Yes Yes -Type of Procedure Debridement Debridement Debridement -Clinical Debridement Muscle / Fascia Muscle / Fascia Subcutaneous -Tissue Removed Muscle Muscle Subcutaneous -Post Debridement (cm) - Length 1.6 1.6 1.5 -Post Debridement (cm) - Width 0.7 1.5 1.2 -Post Debridement (cm) - Depth 0.3 0.3 0.2 -Total Square (Post) (cm) 1.12 2.40 1.80 -Area of Debridement (cm) - Length 1.6 1.6 1.5 -Area of Debridement (cm) - Width 0.7 1.5 1.2 -Total Square (Area) (cm) 1.12 2.40 1.80 -Tunneling No No No -Undermining/Tunneling No No No -Circular Undermining No No No -Wound/Ulcer Outcome Not Healed Not Healed Not Healed -Ulcer Cleansing Rinsed/ Rinsed/ Rinsed/ Irrigated with Irrigated with Irrigated with Saline Saline Saline -Foul Odor after Cleansing No No No -Bioengineered Tissue No No No -Bleeding Controlled with Pressure Pressure Pressure -Treatment Response Procedure Procedure Procedure Tolerated Well Tolerated Well Tolerated Well -Offloading No No No -Debridement - Subq, 1st 20sq cm No Yes -Debridement - Muscle / Fascia, 1st Yes Yes 20sq cm Pain Scale: 0-10 Numeric Is Patient Pain Free? Yes Yes Yes - Nurse 3 - General Ulcer D/C NN Start: 04/07/23 09:54 Freq: Status: Active Protocol: Activity Type Activity Date Activity User E-sign Co-sign Detail Recorded Client Recorded Date Recorded By Document 04/07/23 10:37 GM Desktop 04/07/23 10:38 GM Document 04/14/23 10:30 GM Desktop 04/14/23 10:32 GM 04/07/23 04/14/23 10:37 10:30 Wound Care Center Nurse 3 #1- L PLANTAR HALLUX -Ulcer Cleansing Not Cleansed Not Cleansed -Foul Odor after Cleansing No No -Negative Pressure Wound Therapy N/A -Primary Dressing Applied Promogran Melinda Matter -Other Dressing applied patient 's promogran -Primary Dressing Covered/Secured with Dry Gauze & Dry Gauze & Roll Gauze, Roll Gauze, Secured with Secured with Tape Tape -Promogran Melinda Matter 1 Pain Scale: 0-10 Numeric Is Patient Pain Free? Yes Yes Teaching: Wound Center Dressings -Person Taught Patient,Family Patient,Family -Teaching Method Discussion Discussion -Response to teaching Verbalize Verbalize understanding understanding WC - Visit Discharge Discharge Condition Stable Stable Ambulatory Status Ambulatory Ambulatory Transportation Private Auto Private Auto Medication Reconcilliation completed & Yes Yes provided to patient/care provider Clinical Summary of Care Provided Yes Yes Assessment/Plan Assessment/Plan (1) Non-pressure chronic ulcer of other part of left foot with fat layer exposed: CODE(S): L97.522 - Non-pressure chronic ulcer of other part of left foot with fat layer exposed PLAN: Patient was examined and evaluated. All findings were discussed with the patient. All questions were answered to the patient's satisfaction. Excisional debridement down to and including subcutaneous tissue, fascia and muscle with a #15 blade to the left hallux full-thickness ulceration without incident. Predebridement measurement was 1.3 x 0.1.0 x 0.1 cm. Postdebridement measurement is 1.5 x 1.2 x 0.2 cm. The left hallux is likely and patted dry. The ulceration was dressed with Melinda and dry sterile dressing. The patient will continue home dressing changes as instructed. He will follow-up Wednesday in private office for surgical consultation booking and signing of paperwork. Follow-up at the wound care center with Dr. Fajardo in 1 week. (2) Acute painful diabetic polyneuropathy: CODE(S): E11.42 - Type 2 diabetes mellitus with diabetic polyneuropathy
[2023-04-28 09:58] VITALS: BP 136/85; PULSE 89; RESP 18; TEMP 35.9; BMI 32.8
--- NOTE | 2023-04-28 10:29 | PCM.WC.PN ---
History of Present Illness Date of Service: 04/28/23 Chief Complaint: Left foot wound History of Wound: Left foot wound for 5 months Subjective Subjective Mr. Pappas is a 58-year-old diabetic male presenting to wound care center today for follow-up and evaluation of full-thickness ulceration to the plantar aspect of his left big toe. He admits to having controlled blood sugar. He has been doing home dressing changes as instructed without complications. He denies any trauma. Denies constitutional symptoms. No other pedal complaints at this time. Objective Data Objective Data Vital Signs: Vital Signs Temp Pulse Resp BP O2 Del Method 96.7 F L 89 18 136/85 H Room Air 04/28/23 09:58 04/28/23 09:58 04/28/23 09:58 04/28/23 09:58 04/28/23 09:58 Oxygen Delivery Method Room Air Weight: 116.12 kg Body Mass Index (BMI) 32.8 Physical Exam Narrative Vascular: DP and PT pulses are palpable. CFT is brisk. Evidence of blanchable erythema appreciated left hallux. Nonpitting edema appreciated to left lower extremity. Neurological: Light touch is intact. Protective sensation is absent. Patient does not respond to painful stimuli. Dermatological: Full-thickness ulceration to the plantar medial aspect of the left hallux measuring 1.4 x 0.9 x 0.1 cm. Evidence of exposure to muscle. Evidence of hyperkeratotic periwound. Blanchable erythema without proximal streaking. No evidence of drainage or purulent drainage. No probe to bone. Excisional debridement down to and including subcutaneous tissue with #15 blade to the left hallux full-thickness ulceration without incident. Predebridement measurement was 1.2 x 0.7 x 0.1 cm. Postdebridement measurement is 1.4 x 0.9 x 0.1 cm. Musculoskeletal: Decreased range of motion to the first metatarsal phalangeal joint as well as the IPJ of the left hallux. No pain with palpation of the full-thickness ulceration left hallux. No pain with calf pression. Debridement Note Debridement Note Debridement Free Text: Excisional debridement down to and including subcutaneous tissue with #15 blade to the left hallux full-thickness ulceration without incident. Predebridement measurement was 1.2 x 0.7 x 0.1 cm. Postdebridement measurement is 1.4 x 0.9 x 0.1 cm. Post-Debridement Measurements and Additional Note: Post-Debridement Measurements/Treatment WC - Nurse 1 - General Ulcer Assessment Start: 04/07/23 09:54 Freq: Status: Active Protocol: RIDGE Activity Type Activity Date Activity User E-sign Co-sign Detail Recorded Client Recorded Date Recorded By Document 04/07/23 09:54 KW Desktop 04/07/23 10:00 KW Document 04/21/23 09:58 KW Desktop 04/21/23 10:03 KW Document 04/28/23 09:58 [id number] 04/28/23 10:03 GM 04/07/23 04/21/23 04/28/23 09:54 09:58 09:58 WC - Today's Visit Information Type of service Follow-up Visit Follow-up Visit Follow-up Visit (Physician/[employer] (Physician/[employer] (Physician/[employer] ) ) ) Arrival Mode Ambulatory Ambulatory Ambulatory Transfer Assistance None Accompanied by Patient Identification Verified (Name & Yes Yes Yes ) Patient Requires Transmission-Based No Precautions Height and Weight Body Mass Index (BMI) 32.8 32.8 32.8 BMI Classification Obese Obese Obese Vital Signs Temperature (97.8 F-99.1 F) 96.1 F L 95.8 F L 96.7 F L Temperature Source Temporal Temporal Temporal Pulse Rate (60-100) 89 101 H 89 Pulse Location Monitor Monitor Monitor Respiratory Rate (12-18) 18 18 18 Respiratory rate source Observation Observation Observation Oxygen Delivery Method Room Air Room Air Room Air Blood Pressure (90/60-120/80) 149/80 H 121/72 H 136/85 H Blood Pressure Mean (mm Hg) 103 88 102 Source Monitor Monitor Monitor Position Semi-Fowlers Semi-Fowlers Sitting Blood Pressure Location Left Arm Left Arm Left Arm History Since Last Visit- (Skip if this is Patient's initial visit) Have you changed medications since your No No No last visit? Any new allergies or adverse reactions No No No Had a fall/change in ADL's that may No No No increase risk of falls Signs or symptoms of abuse and/or No No No neglect since last visit Have you been in the hospital since your No No No last visit? Has dressing in place as prescribed Yes Yes Yes Has compression in place as prescribed N/A Yes N/A Has offloadiing in place as prescribed N/A No N/A Experienced any changes in pain level or No No management Left Footwear Regular Shoe Regular Shoe Regular Shoe Right Footwear Regular Shoe Regular Shoe Regular Shoe Pain Scale: 0-10 Numeric Is Patient Pain Free? Yes Yes Yes WC - Nurse 1 - General Ulcer Measurement Start: 04/07/23 09:54 Freq: Status: Active Protocol: Activity Type Activity Date Activity User E-sign Co-sign Detail Recorded Client Recorded Date Recorded By Document 04/07/23 09:54 KW Desktop 04/07/23 10:00 KW Document 04/21/23 09:58 KW Desktop 04/21/23 10:03 KW Document 04/28/23 09:58 [id number] 04/28/23 10:03 GM 04/07/23 04/21/23 04/28/23 09:54 09:58 09:58 Wound Center Nurse 1 #1- L PLANTAR HALLUX -Current Size (cm) - Length 1.0 1.3 1.1 -Current Size (cm) - Width 0.8 1 0.9 -Current Size (cm) - Depth 0.2 0.1 0.2 -Total Square Cm 0.80 1.3 0.99 -Date of Last Picture (Recall this 04/21/23 04/28/23 field) -Photo Taken Yes Yes -Epithelialization Small 1-33% -Tunneling No -Undermining/Tunneling No -Circular Undermining No -Exudate Amt Small Medium Small -Exudate Type Serosanguineous Serosanguineous Yellow/Green -Wound Margin Distinct, Distinct, Distinct, Outline Outline Outline Attached Attached Attached -Granulation Amt Medium (34-66%) Medium (34-66%) Medium (34-66%) -Granulation Quality [place] Red Red -Slough/Fibrin Yes -Necrosis Amt Small (1-33%) Small (1-33%) Small (1-33%) -Necrotic Tissue Type Adherent Slough Adherent Slough -Texture (Sarah-wound Skin Appearance) Assessed,Callus Assessed,Callus Assessed -Moisture (Sarah-wound Skin Appearance) Assessed, Assessed, Assessed, Maceration Maceration Maceration -Color (Sarah-wound Skin Appearance) Assessed Assessed Assessed -Temperature (Sarah-wound Skin No Abnormality No Abnormality No Abnormality Appearance) (Pt Warm) (Pt Warm) (Pt Warm) -Tenderness on Palpation (Sarah-wound No No Skin Appearance) -Ulcer Cleansing Rinsed/ Rinsed/ Soap and Water Irrigated with Irrigated with Saline Saline -Foul Odor after Cleansing No No No -Anesthetic Used 5% Lidocaine 5% Lidocaine 5% Lidocaine Gel Gel Gel WC - Nurse 2 - General Ulcer CM Notes Start: 04/07/23 09:54 Freq: Status: Active Protocol: Activity Type Activity Date Activity User E-sign Co-sign Detail Recorded Client Recorded Date Recorded By Document 04/07/23 10:20 JF Laptop 04/07/23 10:21 JF Edit Result 04/07/23 10:20 JF (1) Laptop 04/07/23 10:24 JF Document 04/14/23 10:06 JF Laptop 04/14/23 10:16 JF Document 04/21/23 10:10 JF Laptop 04/21/23 10:14 JF Edit Result 04/21/23 10:10 JF (2) Laptop 04/21/23 10:15 JF Document 04/28/23 10:12 JF Laptop 04/28/23 10:15 JF Edit Result 04/28/23 10:12 JF (3) Laptop 04/28/23 10:15 JF (1) #1- L PLANTAR HALLUX - Clinical Debridement Subcutaneous => Muscle / Fascia - Tissue Removed Subcutaneous => Muscle - Post Debridement (cm) - Length => 1.6 - Post Debridement (cm) - Width => 0.7 - Post Debridement (cm) - Depth => 0.3 - Total Square (Post) (cm) => 1.12 - Area of Debridement (cm) - Length => 1.6 - Area of Debridement (cm) - Width => 0.7 - Total Square (Area) (cm) => 1.12 - Debridement - Subq, 1st 20sq cm Yes => No - Debridement - Muscle / Fascia, 1st => Yes 20sq cm (2) #1- L PLANTAR HALLUX - Post Debridement (cm) - Depth 0.3 => 0.2 (3) #1- L PLANTAR HALLUX - Bleeding Controlled with Pressure => Pressure,Silver => Nitrate 04/07/23 04/14/23 04/21/23 10:20 10:06 10:10 Wound Center Nurse 2 #1- L PLANTAR HALLUX -Time 10:20 10:06 10:11 -Correct Patient Yes Yes Yes -Correct Side, Site, Position Yes Yes Yes -Correct Procedure Yes Yes Yes -Procedure Performed Yes Yes Yes -Type of Procedure Debridement Debridement Debridement -Clinical Debridement Muscle / Fascia Muscle / Fascia Subcutaneous -Tissue Removed Muscle Muscle Subcutaneous -Post Debridement (cm) - Length 1.6 1.6 1.5 -Post Debridement (cm) - Width 0.7 1.5 1.2 -Post Debridement (cm) - Depth 0.3 0.3 0.2 -Total Square (Post) (cm) 1.12 2.40 1.80 -Area of Debridement (cm) - Length 1.6 1.6 1.5 -Area of Debridement (cm) - Width 0.7 1.5 1.2 -Total Square (Area) (cm) 1.12 2.40 1.80 -Tunneling No No No -Undermining/Tunneling No No No -Circular Undermining No No No -Wound/Ulcer Outcome Not Healed Not Healed Not Healed -Ulcer Cleansing Rinsed/ Rinsed/ Rinsed/ Irrigated with Irrigated with Irrigated with Saline Saline Saline -Foul Odor after Cleansing No No No -Bioengineered Tissue No No No -Bleeding Controlled with Pressure Pressure Pressure -Treatment Response Procedure Procedure Procedure Tolerated Well Tolerated Well Tolerated Well -Offloading No No No -Debridement - Subq, 1st 20sq cm No Yes -Debridement - Muscle / Fascia, 1st Yes Yes 20sq cm Pain Scale: 0-10 Numeric Is Patient Pain Free? Yes Yes Yes 04/28/23 10:12 Wound Center Nurse 2 #1- L PLANTAR HALLUX -Time 10:12 -Correct Patient Yes -Correct Side, Site, Position Yes -Correct Procedure Yes -Procedure Performed Yes -Type of Procedure Debridement -Clinical Debridement Subcutaneous -Tissue Removed Subcutaneous -Post Debridement (cm) - Length 1.4 -Post Debridement (cm) - Width 0.9 -Post Debridement (cm) - Depth 0.1 -Total Square (Post) (cm) 1.26 -Area of Debridement (cm) - Length 1.4 -Area of Debridement (cm) - Width 0.9 -Total Square (Area) (cm) 1.26 -Tunneling No -Undermining/Tunneling No -Circular Undermining No -Wound/Ulcer Outcome Not Healed -Ulcer Cleansing Rinsed/ Irrigated with Saline -Foul Odor after Cleansing No -Bioengineered Tissue No -Bleeding Controlled with Pressure,Silver Nitrate -Treatment Response Procedure Tolerated Well -Offloading No -Debridement - Subq, 1st 20sq cm Yes -Debridement - Muscle / Fascia, 1st 20sq cm Pain Scale: 0-10 Numeric Is Patient Pain Free? Yes - Nurse 3 - General Ulcer D/C NN Start: 04/07/23 09:54 Freq: Status: Active Protocol: Activity Type Activity Date Activity User E-sign Co-sign Detail Recorded Client Recorded Date Recorded By Document 04/07/23 10:37 GM Desktop 04/07/23 10:38 GM Document 04/14/23 10:30 GM Desktop 04/14/23 10:32 GM Document 04/21/23 10:22 KW Desktop 04/21/23 10:22 KW Document 04/28/23 10:18 [employer] Laptop 04/28/23 10:19 04/07/23 04/14/23 04/21/23 10:37 10:30 10:22 Wound Care Center Nurse 3 #1- L PLANTAR HALLUX -Ulcer Cleansing Not Cleansed Not Cleansed Rinsed/ Irrigated with Saline -Foul Odor after Cleansing No No -Negative Pressure Wound Therapy N/A -Primary Dressing Applied Promogran Melinda Matter -Other Dressing applied patient 's promogran -Primary Dressing Covered/Secured with Dry Gauze & Dry Gauze & Dry Gauze & Roll Gauze, Roll Gauze, Roll Gauze, Secured with Secured with Secured with Tape Tape Tape -Promogran Melinda Matter 1 Pain Scale: 0-10 Numeric Is Patient Pain Free? Yes Yes Yes Teaching: Wound Center Dressings -Person Taught Patient,Family Patient,Family -Teaching Method Discussion Discussion -Response to teaching Verbalize Verbalize understanding understanding WC - Visit Discharge Discharge Condition Stable Stable Stable Ambulatory Status Ambulatory Ambulatory Ambulatory Transportation Private Auto Private Auto Private Auto Medication Reconcilliation completed & Yes Yes No provided to patient/care provider Clinical Summary of Care Provided Yes Yes Yes 04/28/23 10:18 Wound Care Center Nurse 3 #1- L PLANTAR HALLUX -Ulcer Cleansing -Foul Odor after Cleansing No -Negative Pressure Wound Therapy -Primary Dressing Applied -Other Dressing melinda from home -Primary Dressing Covered/Secured with Dry Gauze, Secured with Tape -Promogran Melinda Matter Pain Scale: 0-10 Numeric Is Patient Pain Free? Yes Teaching: Wound Center Dressings -Person Taught Patient -Teaching Method Discussion, Demonstration -Response to teaching Verbalize understanding WC - Visit Discharge Discharge Condition Stable Ambulatory Status Ambulatory Transportation Private Auto Medication Reconcilliation completed & Yes provided to patient/care provider Clinical Summary of Care Provided Yes Assessment/Plan Assessment/Plan (1) Non-pressure chronic ulcer of other part of left foot with fat layer exposed: CODE(S): L97.522 - Non-pressure chronic ulcer of other part of left foot with fat layer exposed PLAN: Patient was examined and evaluated. All findings were discussed with the patient. All questions were answered to the patient's satisfaction. Excisional debridement down to and including subcutaneous tissue with #15 blade to the left hallux full-thickness ulceration without incident. Predebridement measurement was 1.2 x 0.7 x 0.1 cm. Postdebridement measurement is 1.4 x 0.9 x 0.1 cm. The wound was dressed with Melinda, Betadine paint dry sterile dressing. Will plan for the OR procedure consisting of left hallux IPJ arthroplasty, surgical graft site prep with application of skin graft substitute. Date of surgery will be on 05/14/2023. Follow-up at the wound care center with Dr. Fajardo in 1 week.
[2023-05-05 10:09] VITALS: BP 158/90; PULSE 88; RESP 16; TEMP 35.3; BMI 32.8
--- NOTE | 2023-05-05 10:23 | PN.PCM_ITS ---
History of Present Illness Date of Service: 05/05/23 Chief Complaint: Left foot wound History of Wound: Left foot wound for 5 months Subjective Subjective Mr. Pappas is a 58-year-old diabetic male presenting to wound care center today for follow-up and evaluation of full-thickness ulceration to the plantar aspect of his left big toe. He admits to having controlled blood sugar. He has been doing home dressing changes as instructed without complications. Plan for surgical intervention to the left great toe on 12/27. Patient did see vascular surgery and commented that if there is poor healing after surgery will recommend angiogram to the left lower extremity. Also in regards to the patient's venous reflux would recommend compression stockings long-term. He denies any trauma. Denies constitutional symptoms. No other pedal complaints at this time. Objective Data Objective Data Vital Signs: Vital Signs Temp Pulse Resp BP O2 Del Method 95.6 F L 88 16 158/90 H Room Air 05/05/23 10:05/05/23 10:05/05/23 10:05/05/23 10:04/28/23 09:58 Oxygen Delivery Method Room Air Weight: 116.12 kg Body Mass Index (BMI) 32.8 Physical Exam Narrative Vascular: DP and PT pulses are palpable. CFT is brisk. Evidence of blanchable erythema appreciated left hallux. Nonpitting edema appreciated to left lower extremity. Neurological: Light touch is intact. Protective sensation is absent. Patient does not respond to painful stimuli. Dermatological: Full-thickness ulceration to the plantar medial aspect of the left hallux measuring 1.2 x 0.8 x 0.2 cm. Evidence of exposure to muscle. Evidence of hyperkeratotic periwound. Blanchable erythema without proximal streaking. No evidence of drainage or purulent drainage. No probe to bone. Excisional debridement down to and including subcutaneous tissue with #15 blade to the left hallux full-thickness ulceration without incident. Predebridement measurement was 1.1 x 0.6 x 0.1 cm. Postdebridement measurement is 1.2 x 0.8 x 0.2 cm. Musculoskeletal: Decreased range of motion to the first metatarsal phalangeal joint as well as the IPJ of the left hallux. No pain with palpation of the full-thickness ulceration left hallux. No pain with calf pression. Debridement Note Debridement Note Debridement Free Text: Excisional debridement down to and including subcutaneous tissue with #15 blade to the left hallux full-thickness ulceration without incident. Predebridement measurement was 1.1 x 0.6 x 0.1 cm. Postdebridement measurement is 1.2 x 0.8 x 0.2 cm. Post-Debridement Measurements and Additional Note: Post-Debridement Measurements/Treatment - Nurse 1 - General Ulcer Assessment Start: 04/07/23 09:54 Freq: Status: Active Protocol: RIDGE Activity Type Activity Date Activity User E-sign Co-sign Detail Recorded Client Recorded Date Recorded By Document 04/07/23 09:54 KW Desktop 04/07/23 10:00 KW Document 04/21/23 09:58 KW [email or web address] 04/21/23 10:03 KW Document 04/28/23 09:58 [id number] 04/28/23 10:03 GM Document 05/05/23 10:09 [facility] Laptop 05/05/23 10:10 JF 04/07/23 04/21/23 04/28/23 09:54 09:58 09:58 - Today's Visit Information Type of service Follow-up Visit Follow-up Visit Follow-up Visit (Physician/NATURAL RESOURCES ENGINEER (Physician/NATURAL RESOURCES ENGINEER (Physician/NATURAL RESOURCES ENGINEER ) ) ) Arrival Mode Ambulatory Ambulatory Ambulatory Transfer Assistance None Accompanied by Patient Identification Verified (Name & Yes Yes Yes ) Patient Requires Transmission-Based No Precautions Height and Weight Body Mass Index (BMI) 32.8 32.8 32.8 BMI Classification Obese Obese Obese Vital Signs Temperature (97.8 F-99.1 F) 96.1 F L 95.8 F L 96.7 F L Temperature Source Temporal Temporal Temporal Pulse Rate (60-100) 89 101 H 89 Pulse Location Monitor Monitor Monitor Respiratory Rate (12-18) 18 18 18 Respiratory rate source Observation Observation Observation Oxygen Delivery Method Room Air Room Air Room Air Blood Pressure (90/60-120/80) 149/80 H 121/72 H 136/85 H Blood Pressure Mean (mm Hg) 103 88 102 Source Monitor Monitor Monitor Position Semi-Fowlers Semi-Fowlers Sitting Blood Pressure Location Left Arm Left Arm Left Arm History Since Last Visit- (Skip if this is Patient's initial visit) Have you changed medications since your No No No last visit? Any new allergies or adverse reactions No No No Had a fall/change in ADL's that may No No No increase risk of falls Signs or symptoms of abuse and/or No No No neglect since last visit Have you been in the hospital since your No No No last visit? Has dressing in place as prescribed Yes Yes Yes Has compression in place as prescribed N/A Yes N/A Has offloadiing in place as prescribed N/A No N/A Experienced any changes in pain level or No No management Left Footwear Regular Shoe Regular Shoe Regular Shoe Right Footwear Regular Shoe Regular Shoe Regular Shoe Pain Scale: 0-10 Numeric Is Patient Pain Free? Yes Yes Yes 05/05/23 10:09 WC - Today's Visit Information Type of service Follow-up Visit (Physician/NATURAL RESOURCES ENGINEER ) Arrival Mode Ambulatory Transfer Assistance Accompanied by Patient Identification Verified (Name & Yes ) Patient Requires Transmission-Based No Precautions Height and Weight Body Mass Index (BMI) 32.8 BMI Classification Obese Vital Signs Temperature (97.8 F-99.1 F) 95.6 F L Temperature Source Temporal Pulse Rate (60-100) 88 Pulse Location Monitor Respiratory Rate (12-18) 16 Respiratory rate source Observation Oxygen Delivery Method Blood Pressure (90/60-120/80) 158/90 H Blood Pressure Mean (mm Hg) 112 Source Manual Position Semi-Fowlers Blood Pressure Location Left Arm History Since Last Visit- (Skip if this is Patient's initial visit) Have you changed medications since your No last visit? Any new allergies or adverse reactions No Had a fall/change in ADL's that may No increase risk of falls Signs or symptoms of abuse and/or No neglect since last visit Have you been in the hospital since your No last visit? Has dressing in place as prescribed Yes Has compression in place as prescribed N/A Has offloadiing in place as prescribed No Experienced any changes in pain level or No management Left Footwear Regular Shoe Right Footwear Regular Shoe Pain Scale: 0-10 Numeric Is Patient Pain Free? Yes - Nurse 1 - General Ulcer Measurement Start: 04/07/23 09:54 Freq: Status: Active Protocol: Activity Type Activity Date Activity User E-sign Co-sign Detail Recorded Client Recorded Date Recorded By Document 04/07/23 09:54 KW Desktop 04/07/23 10:00 KW Document 04/21/23 09:58 KW Desktop 04/21/23 10:03 KW Document 04/28/23 09:58 [id number] 04/28/23 10:03 Document 05/05/23 10:09 Laptop 05/05/23 10:10 JF 04/07/23 04/21/23 04/28/23 09:54 09:58 09:58 Wound Center Nurse 1 #1- L PLANTAR HALLUX -Combined with other wound -Current Size (cm) - Length 1.0 1.3 1.1 -Current Size (cm) - Width 0.8 1 0.9 -Current Size (cm) - Depth 0.2 0.1 0.2 -Total Square Cm 0.80 1.3 0.99 -Date of Last Picture (Recall this 04/21/23 04/28/23 field) -Photo Taken Yes Yes -Epithelialization Small 1-33% -Tunneling No -Undermining/Tunneling No -Circular Undermining No -Exudate Amt Small Medium Small -Exudate Type Serosanguineous Serosanguineous Yellow/Green -Wound Margin Distinct, Distinct, Distinct, Outline Outline Outline Attached Attached Attached -Granulation Amt Medium (34-66%) Medium (34-66%) Medium (34-66%) -Granulation Quality [place] Red Red -Slough/Fibrin Yes -Necrosis Amt Small (1-33%) Small (1-33%) Small (1-33%) -Necrotic Tissue Type Adherent Slough Adherent Slough -Structure Exposed -Texture (Sarah-wound Skin Appearance) Assessed,Callus Assessed,Callus Assessed -Moisture (Sarah-wound Skin Appearance) Assessed, Assessed, Assessed, Maceration Maceration Maceration -Color (Sarah-wound Skin Appearance) Assessed Assessed Assessed -Temperature (Sarah-wound Skin No Abnormality No Abnormality No Abnormality Appearance) (Pt Warm) (Pt Warm) (Pt Warm) -Tenderness on Palpation (Sarah-wound No No Skin Appearance) -Ulcer Cleansing Rinsed/ Rinsed/ Soap and Water Irrigated with Irrigated with Saline Saline -Foul Odor after Cleansing No No No -Anesthetic Used 5% Lidocaine 5% Lidocaine 5% Lidocaine Gel Gel Gel Lower Limb Edema Present 05/05/23 10:09 Wound Center Nurse 1 #1- L PLANTAR HALLUX -Combined with other wound No -Current Size (cm) - Length 1.3 -Current Size (cm) - Width 0.7 -Current Size (cm) - Depth 0.1 -Total Square Cm 0.91 -Date of Last Picture (Recall this field) -Photo Taken Yes -Epithelialization Small 1-33% -Tunneling No -Undermining/Tunneling No -Circular Undermining No -Exudate Amt Medium -Exudate Type Serosanguineous -Wound Margin Flat & Intact -Granulation Amt Large (67-100%) -Granulation Quality Red -Slough/Fibrin Yes -Necrosis Amt Small (1-33%) -Necrotic Tissue Type Adherent Slough -Structure Exposed Joint -Texture (Sarah-wound Skin Appearance) Assessed -Moisture (Sarah-wound Skin Appearance) Assessed,Dry/ Scaly -Color (Sarah-wound Skin Appearance) Assessed -Temperature (Sarah-wound Skin No Abnormality Appearance) (Pt Warm) -Tenderness on Palpation (Asrah-wound No Skin Appearance) -Ulcer Cleansing Rinsed/ Irrigated with Saline -Foul Odor after Cleansing No -Anesthetic Used 5% Lidocaine Gel Lower Limb Edema Present NA WC - Nurse 2 - General Ulcer CM Notes Start: 04/07/23 09:54 Freq: Status: Active Protocol: Activity Type Activity Date Activity User E-sign Co-sign Detail Recorded Client Recorded Date Recorded By Document 04/07/23 10:20 Laptop 04/07/23 10:21 Edit Result 04/07/23 10:20 JF (1) Laptop 04/07/23 10:24 JF Document 04/14/23 10:06 Laptop 04/14/23 10:16 Document 04/21/23 10:10 Laptop 04/21/23 10:14 JF Edit Result 04/21/23 10:10 JF (2) Laptop 04/21/23 10:15 JF Document 04/28/23 10:12 JF Laptop 04/28/23 10:15 JF Edit Result 04/28/23 10:12 JF (3) Laptop 04/28/23 10:15 JF Document 05/05/23 10:17 JF Laptop 05/05/23 10:20 JF (1) #1- L PLANTAR HALLUX - Clinical Debridement Subcutaneous => Muscle / Fascia - Tissue Removed Subcutaneous => Muscle - Post Debridement (cm) - Length => 1.6 - Post Debridement (cm) - Width => 0.7 - Post Debridement (cm) - Depth => 0.3 - Total Square (Post) (cm) => 1.12 - Area of Debridement (cm) - Length => 1.6 - Area of Debridement (cm) - Width => 0.7 - Total Square (Area) (cm) => 1.12 - Debridement - Subq, 1st 20sq cm Yes => No - Debridement - Muscle / Fascia, 1st => Yes 20sq cm (2) #1- L PLANTAR HALLUX - Post Debridement (cm) - Depth 0.3 => 0.2 (3) #1- L PLANTAR HALLUX - Bleeding Controlled with Pressure => Pressure,Silver => Nitrate 04/07/23 04/14/23 04/21/23 10:20 10:06 10:10 Wound Center Nurse 2 #1- L PLANTAR HALLUX -Time 10:20 10:06 10:11 -Correct Patient Yes Yes Yes -Correct Side, Site, Position Yes Yes Yes -Correct Procedure Yes Yes Yes -Procedure Performed Yes Yes Yes -Type of Procedure Debridement Debridement Debridement -Clinical Debridement Muscle / Fascia Muscle / Fascia Subcutaneous -Tissue Removed Muscle Muscle Subcutaneous -Post Debridement (cm) - Length 1.6 1.6 1.5 -Post Debridement (cm) - Width 0.7 1.5 1.2 -Post Debridement (cm) - Depth 0.3 0.3 0.2 -Total Square (Post) (cm) 1.12 2.40 1.80 -Area of Debridement (cm) - Length 1.6 1.6 1.5 -Area of Debridement (cm) - Width 0.7 1.5 1.2 -Total Square (Area) (cm) 1.12 2.40 1.80 -Tunneling No No No -Undermining/Tunneling No No No -Circular Undermining No No No -Wound/Ulcer Outcome Not Healed Not Healed Not Healed -Ulcer Cleansing Rinsed/ Rinsed/ Rinsed/ Irrigated with Irrigated with Irrigated with Saline Saline Saline -Foul Odor after Cleansing No No No -Bioengineered Tissue No No No -Bleeding Controlled with Pressure Pressure Pressure -Treatment Response Procedure Procedure Procedure Tolerated Well Tolerated Well Tolerated Well -Offloading No No No -Debridement - Subq, 1st 20sq cm No Yes -Debridement - Muscle / Fascia, 1st Yes Yes 20sq cm Pain Scale: 0-10 Numeric Is Patient Pain Free? Yes Yes Yes 04/28/23 05/05/23 10:12 10:17 Wound Center Nurse 2 #1- L PLANTAR HALLUX -Time 10:12 10:17 -Correct Patient Yes Yes -Correct Side, Site, Position Yes Yes -Correct Procedure Yes Yes -Procedure Performed Yes Yes -Type of Procedure Debridement Debridement -Clinical Debridement Subcutaneous Subcutaneous -Tissue Removed Subcutaneous Subcutaneous -Post Debridement (cm) - Length 1.4 1.2 -Post Debridement (cm) - Width 0.9 0.8 -Post Debridement (cm) - Depth 0.1 0.2 -Total Square (Post) (cm) 1.26 0.96 -Area of Debridement (cm) - Length 1.4 1.2 -Area of Debridement (cm) - Width 0.9 0.8 -Total Square (Area) (cm) 1.26 0.96 -Tunneling No No -Undermining/Tunneling No No -Circular Undermining No No -Wound/Ulcer Outcome Not Healed Not Healed -Ulcer Cleansing Rinsed/ Rinsed/ Irrigated with Irrigated with Saline Saline -Foul Odor after Cleansing No No -Bioengineered Tissue No No -Bleeding Controlled with Pressure,Silver Pressure Nitrate -Treatment Response Procedure Procedure Tolerated Well Tolerated Well -Offloading No No -Debridement - Subq, 1st 20sq cm Yes Yes -Debridement - Muscle / Fascia, 1st 20sq cm Pain Scale: 0-10 Numeric Is Patient Pain Free? Yes Yes - Nurse 3 - General Ulcer D/C NN Start: 04/07/23 09:54 Freq: Status: Active Protocol: Activity Type Activity Date Activity User E-sign Co-sign Detail Recorded Client Recorded Date Recorded By Document 04/07/23 10:37 Desktop 04/07/23 10:38 Document 04/14/23 10:30 Desktop 04/14/23 10:32 GM Document 04/21/23 10:22 KW Desktop 04/21/23 10:22 KW Document 04/28/23 10:18 JF Laptop 04/28/23 10:19 JF Document 05/05/23 10:20 JF Laptop 05/05/23 10:22 JF 04/07/23 04/14/23 04/21/23 10:37 10:30 10:22 Wound Care Center Nurse 3 #1- L PLANTAR HALLUX -Ulcer Cleansing Not Cleansed Not Cleansed Rinsed/ Irrigated with Saline -Foul Odor after Cleansing No No -Negative Pressure Wound Therapy N/A -Primary Dressing Applied Promogran Melinda Matter -Other Dressing applied patient 's promogran -Primary Dressing Covered/Secured with Dry Gauze & Dry Gauze & Dry Gauze & Roll Gauze, Roll Gauze, Roll Gauze, Secured with Secured with Secured with Tape Tape Tape -Promogran Melinda Matter 1 Pain Scale: 0-10 Numeric Is Patient Pain Free? Yes Yes Yes Teaching: Wound Center Dressings -Person Taught Patient,Family Patient,Family -Teaching Method Discussion Discussion -Response to teaching Verbalize Verbalize understanding understanding WC - Visit Discharge Discharge Condition Stable Stable Stable Ambulatory Status Ambulatory Ambulatory Ambulatory Transportation Private [employer] Auto Relay Auto Medication Reconcilliation completed & Yes Yes No provided to patient/care provider Clinical Summary of Care Provided Yes Yes Yes 04/28/23 05/05/23 10:18 10:20 Wound Care Center Nurse 3 #1- L PLANTAR HALLUX -Ulcer Cleansing Rinsed/ Irrigated with Saline -Foul Odor after Cleansing No No -Negative Pressure Wound Therapy -Primary Dressing Applied -Other Dressing melinda from melinda and home betadine -Primary Dressing Covered/Secured with Dry Gauze, Dry Gauze, Secured with Secured with Tape Tape -Promogran Melinda Matter Pain Scale: 0-10 Numeric Is Patient Pain Free? Yes Yes Teaching: Wound Center Dressings -Person Taught Patient -Teaching Method Discussion, Demonstration -Response to teaching Verbalize understanding WC - Visit Discharge Discharge Condition Stable Stable Ambulatory Status Ambulatory Ambulatory Transportation Private Auto Relay Auto Medication Reconcilliation completed & Yes Yes provided to patient/care provider Clinical Summary of Care Provided Yes Yes Assessment/Plan Assessment/Plan (1) Non-pressure chronic ulcer of other part of left foot with fat layer exposed: CODE(S): L97.522 - Non-pressure chronic ulcer of other part of left foot with fat layer exposed PLAN: Patient was examined and evaluated. All findings were discussed with the patient. All questions were answered to the patient's satisfaction. Excisional debridement down to and including subcutaneous tissue with #15 blade to the left hallux full-thickness ulceration without incident. Predebridement measurement was 1.1 x 0.6 x 0.1 cm. Postdebridement measurement is 1.2 x 0.8 x 0.2 cm. Ulceration was packed with Melinda, bandage pain dry sterile dressing. Patient will continue home dressing changes every other day. He will follow-up next Wednesday for evaluation followed by surgery on 05/14/[address] Fajardo at [facility]. Follow-up at the wound care center with Dr. Fajardo in 1 week. (2) Peripheral vascular disease: CODE(S): I73.9 - Peripheral vascular disease, unspecified (3) Acute painful diabetic polyneuropathy: CODE(S): E11.42 - Type 2 diabetes mellitus with diabetic polyneuropathy
== END 2023-05-05 23:59 | disposition home or self-care (01) ==
LOC: WC 10:00
PROVIDERS: PCP Family Medicine; Referring Provider Nurse Practitioner Family; Visit Provider Podiatrist Foot & Ankle Surgery
DX: E11.621 Type 2 diabetes mellitus with foot ulcer (principal); E11.51 Type 2 diabetes mellitus with diabetic peripheral angiopathy without gangrene; L97.523 Non-pressure chronic ulcer of other part of left foot with necrosis of muscle; E11.42 Type 2 diabetes mellitus with diabetic polyneuropathy; Z79.82 Long term (current) use of aspirin; Z79.84 Long term (current) use of oral hypoglycemic drugs; Z79.899 Other long term (current) drug therapy
CPT/HCPCS: 11042; 11043; 93923; 93970

== ENCOUNTER 2023-05-14 05:27 | Day surgery (SDC) | payer OTHER, SELFPAY ==
[2023-04-30 11:35] LABS: Hemoglobin A1c 8.5 % (3.8-5.6)
[2023-04-30 11:49] LABS: Magnesium 1.6 mg/dL (1.6-2.6)
[2023-04-30 11:54] LABS: Vitamin D,25 Hydroxy 23.7 ng/mL
[2023-05-06 14:09] LABS: Cotinine Screen Blood <1.0 ng/mL (.); Nicotine Blood <1.0 ng/mL (.)
[2023-05-14] VITALS (8 sets, daily range): BP systolic 97–122; BP diastolic 62–85; PULSE 73–92; RESP 12–16; TEMP 36.2; O2SAT 99–100; BMI 31.6
--- OUTSIDE RECORDS SUMMARY | 2023-05-14 05:34 | XMS RPT_ITS | CCD ---
Author Name Unknown Address [id number] [place] [address] Organization [facility] Care Team Providers Care Food Service Helper Name Role Phone Savannah Brasher MD Primary Care Provider SAVANNAH BRASHER Primary Care Unavailable YVETTE CAPPS Attending Unavailable SAVANNAH BRASHER Primary Care Unavailable YVETTE CAPPS Referring Unavailable SAVANNAH BRASHER Primary Care Unavailable YVETTE CAPPS Attending Unavailable SAVANNAH BRASHER Primary Care Unavailable YVETTE CAPPS Referring Unavailable SAVANNAH BRASHER Primary Care Unavailable YVETTE CAPPS Attending Unavailable SAVANNAH BRASHER Primary Care Unavailable YVETTE CAPPS Referring Unavailable Medications Current Medications Medication Drug Class(es) Dates Sig (Normalized) Sig (Original) Blood Glucose Control, Normal (GLUCOSE CONTROL) soln (1 source) Start: 03-06-2022 End: 03-07-2022 Blood Glucose Control, Normal (GLUCOSE CONTROL) soln Indications: Type 2 diabetes mellitus without complication, without long-term current use of insulin (HCC) Test Two times a day. Insulin Dep? No E11.9 DM 2 1 Each 03/06/2022 03/07/2022 Active Completed/Discontinued Medications Medication Drug Class(es) Dates Sig (Normalized) Sig (Original) atorvastatin 10 mg oral tablet (7 sources) HMG-CoA Reductase Inhibitor Start: 12-11-2021 End: 06-05-2022 atorvastatin (LIPITOR) 10 mg tablet Indications: Hyperlipidemia, unspecified hyperlipidemia type TAKE 1 TABLET 1 TIME DAILY 90 tablet 3 06/05/2022 Active Problems Problem Classification Problem Date Documented Da te Episodic/Chronic Chronic ulcer of skin (1 source) Non-pressure chronic ulcer of other part of unspecified foot limited to breakdown of skin; Translations: [Diabetic ulcer of foot associated with diabetes mellitus due to underlying condition, limited to breakdown of skin, unspecified laterality, unspecified part of foot (HCC)] Onset: 04-23-2023 Chronic Diabetes mellitus with complications (1 source) Diabetes mellitus due to underlying condition with foot ulcer; Translations: [Diabetic ulcer of foot associated with diabetes mellitus due to underlying condition, limited to breakdown of skin, unspecified laterality, unspecified part of foot (HCC)] Onset: 04-23-2023 Chronic Diabetes mellitus without complication (10 sources) Type 2 diabetes mellitus; Translations: [Type 2 diabetes mellitus without complications] Onset: 03-26-2023 01-31-2018 Chronic Disorders of lipid metabolism (8 sources) Hyperlipidemia; Translations: [Hyperlipidemia, unspecified] Onset: 01-31-2018 01-31-2018 Chronic Essential hypertension (8 sources) Hypertensive disorder; Translations: [Essential (primary) hypertension] Onset: 03-26-2023 01-31-2018 Chronic Fluid and electrolyte disorders (1 source) Hyperkalemia; Translations: [Hyperkalemia] Episodic Open wounds of extremities (1 source) Unspecified open wound of unspecified toe(s) without damage to nail, initial encounter; Translations: [Open wound of toe, initial encounter] Onset: 03-26-2023 Episodic Other screening for suspected conditions (not mental disorders or infectious disease) (1 source) Patient encounter status; Translations: [Encounter for screening for malignant neoplasm of prostate] Episodic Results Test Name Value Interpretation Reference Range Facil ity Vital Signs Date Time Vital Sign Value Performing Clinician May gambino 06-05-2022 09:48-0500 Body weight 114.76 kg Yvette Capps APRN.CNP Work Phone: [facility] 06-05-2022 09:48-0500 Diastolic blood pressure 82 mm[Hg] Yvette Capps APRN.CNP Work Phone: [facility] 06-05-2022 09:48-0500 Heart rate 86 /min Yvette Capps APRN.CNP Work Phone: [facility] 06-05-2022 09:48-0500 Respiratory rate 16 /min Yvette Tannhof ENTRY LEVEL INSTALLATION TECHNICIAN.NURSE REVIEWER Work Phone: [facility] 06-05-2022 09:48-0500 SaO2% (BldA) [Mass fraction] 99 % Yvette Tannhof ENTRY LEVEL INSTALLATION TECHNICIAN.NURSE REVIEWER Work Phone: [facility] 06-05-2022 09:48-0500 Systolic blood pressure 140 mm[Hg] Yvette Tannhof ENTRY LEVEL INSTALLATION TECHNICIAN.NURSE REVIEWER Work Phone: [facility] 03-06-2022 09:58-0500 Body weight 110.68 kg Yvette Hugohof ENTRY LEVEL INSTALLATION TECHNICIAN.NURSE REVIEWER Work Phone: [facility] 03-06-2022 09:58-0500 Diastolic blood pressure 82 mm[Hg] Yvette Tannhof ENTRY LEVEL INSTALLATION TECHNICIAN.NURSE REVIEWER Work Phone: [facility] 03-06-2022 09:58-0500 Heart rate 84 /min Yvette Tannhof ENTRY LEVEL INSTALLATION TECHNICIAN.NURSE REVIEWER Work Phone: [facility] 03-06-2022 09:58-0500 Respiratory rate 16 /min Yvette Tannhof ENTRY LEVEL INSTALLATION TECHNICIAN.NURSE REVIEWER Work Phone: [facility] 03-06-2022 09:58-0500 SaO2% (BldA) [Mass fraction] 100 % Yvettejessica Ariashof ENTRY LEVEL INSTALLATION TECHNICIAN.NURSE REVIEWER Work Phone: [facility] 03-06-2022 09:58-0500 Systolic blood pressure 130 mm[Hg] Yvette Tannhof ENTRY LEVEL INSTALLATION TECHNICIAN.NURSE REVIEWER Work Phone: [facility] Encounters Encounter Date Encounter Type Care Provider Facility Start: 04-23-2023 [facility]counter for [facility]ced[facility] Start: 04-23-2023 End: 04-24-2023 ambulatory [facility] Facility:[facility] Start: 03-26-2023 End: 03-27-2023 ambulatory [facility] Facility:[facility] Start: 03-26-2023 Encounter for genera l adult medical examination without abnormal findings YVETTE CAPPS [facility] Start: 01-18-2023 ambulatory Randiandrea Peralta [facility] Work Phone: [facility] Start: 06-08-2022 Telephone encounter Yvette Hess nhof ENTRY LEVEL INSTALLATION TECHNICIAN.NURSE REVIEWER Work Phone: [facility] [place] Procedures Date Procedure Procedure Detail Performing Clinician Start: 07-30-2020 Adult depression screening assessment Savannah Brasher MD Work Phone: Plan of Treatment Date Care Activity Detail Author Start: 03-06-2027 PROSTATE CANCER SCRE ENING DISCUSSION PROSTATE CANCER SCREENING DISCUSSION [facility] Start: 06-06-2023 ANNUAL PCP TEAM FILE DRAWER FINISHER JESSE DISEASE VISIT ANNUAL PCP TEAM CHRONIC DISEASE VISIT [facility] Start: 03-06-2023 ANNUAL PCP TEAM FILE DRAWER FINISHER JESSE DISEASE VISIT ANNUAL PCP TEAM CHRONIC DISEASE VISIT [facility] Start: 03-06-2023 HEPATITIS B (1 of 3 - 3-dose series) HEPATITIS B (1 of 3 - 3-dose series) [facility] Immunizations Immunization Date Immunization Notes Care Provider Fa raine 01-31-2018 influenza virus vacc ine, unspecified formulation Randi Peralta [facility] Work Phone: [facility] Payers Date Payer Category Payer Private Health Insurance AETNA A ETNA CHOICE POS II [id number] 2012-Present [phone] [address] [place] [address] POS [id number] 2012 Private Health Insurance [id number] 2012 Private Health Insurance [id number] Social History Date Type Detail Facility Start: 01-31-2018 End: 03-06-2022 Tobacco smoking status NHIS Never smoked tobacco [facility] Start: 01-31-2018 End: 03-06-2022 Tobacco use and exposure Smokeless tobacco non-user [facility] Start: 04-01-2021 End: 06-05-2022 Alcohol intake Current non-drinker of alcohol (finding) [facility] Start: 09-28-2019 End: 02-28-2022 History SDOH Alcohol Frequency 3 [facility] Start: 09-28-2019 End: 02-28-2022 History SDOH Alcohol Std Drinks 1 [facility] Start: 01-31-2018 History SDOH Alcohol Comment ocassionaly 2 beer a week [facility] Start: 03-28-2019 End: 02-28-2022 History SDOH Social Connections Membership 2 [facility] Start: 09-26-2019 History SDOH Physica l Activity MPS 4 [facility] Start: 03-28-2019 End: 02-28-2022 History SDOH Financial 5 [facility] Start: 03-27-2019 Education 18 [facility] Start: 1965 Sex Assigned At Male [facility] Start: 02-28-2022 History SDOH Social Connections Meetings 98 [facility] Start: 02-24-2022 End: 03-06-2022 Exposure to SARS-CoV-2 (event) Not sure [facility] Start: 02-28-2022 End: 05-02-2022 History of Social function [facility] Start: 02-28-2022 End: 05-02-2022 Social connection and isolation panel [facility] Do you belong to any clubs or organizations such as yarsani groups, unions, fraternal or athletic groups, or school groups? No [facility] How often do you att end meetings of the clubs or organizations you belong to? Patient refused [facility] Are you now , , , , never or living with a partner? [facility] How often to you hav e a drink containing alcohol? 2-4 times a month [facility] How many standard dr inks containing alcohol do you have on a typical day? 1 or 2 [facility] How often do you hav e 6 or more drinks on 1 occasion? Never [facility] Do you feel stress - tense, restless, nervous, or anxious, or unable to sleep at night because your mind is troubled all the time - these days [OSQ] Only a little [facility] (I/We) worried jammie er (my/our) food would run out before (I/we) got money to buy more. Never true [facility] Start: 02-05-2019 Gender identity Identifies as male gender (finding) [facility] Start: 02-05-2019 Sexual orientation Heterosexual (mayra brody) [facility] Medical Equipment Procedure Code Equipment Code Equipment Origin al Text Equipment Identifier Dates Start: 03-06-2022 Clinical Notes 03-06-2022 to 04-23-2023 Saroj MAEPadminiCharles - 01/18/2023 10:19 AM EDTFmellissa Randi, [facility] - 01/18/2023 10:14 AM EDTTelephone Encounter - Luisa Hollowaylast Mack - 06/08/2022 1:51 PM ESTPatient InstructionsPatient Instructions Note Date & Type Note Facility 04-23-2023 Note HNO ID: [id number] Author: YVETTE CAPPS APRN.NURSE REVIEWER Service: ? Author Type: Nurse Practitioner Type: Progress Notes Filed: 04/23/2023 12:55 Note Text: This is a 58 year old male who presents today with: Patient presents with: Pre-Op Exam HISTORY OF PRESENT ILLNESS: Ar Sherman is a 58 year old male. Patient presents with: Pre-Op Exam Here in the office for preop clearance. Will be having arthroplasty interphalangeal joint, left [place] with Dr. Fajardo at the [facility]. Has a healing Diabetic ulcer. Surgery date not scheduled yet. Going to wound center for treatment at [facility]. Preforming wound care at home and follow up once weekly. Had venous arterial study. DM: Reports overall feeling well. Medication side effects: No. Home sugar checks: 90-100 Hypoglycemic spells: No. Watching diet: Yes. Unexpected weight loss: No. Polyuria, polydipsia: No. Vision Changes: No. Foot lesions or numbness or pain: Yes. Ulcer is healing Taking Glucovance 2.5/500 mg, 2 tablets twice daily. Actos 45 mg daily. A1c was 9.7, glucose readings have improved at home. Difficulty getting medications coverage through health insurance. Has cut out soda and sweets, trying to increase protein. Has been having challenges getting more veggies in the diet. HTN: Taking lisinopril 30 mg daily. Not currently checking blood pressure at home. Denies chest pain, palpitations, dizziness, or edema. Lipids: Taking Lipitor 10 mg daily. PAST MEDICAL HISTORY: PAST MEDICAL HISTORY Diagnosis Date BPPV (benign paroxysmal positional vertigo) 2016 Diabetes type 2, controlled (HCC) Hgb A1c 6.7% 04/2017 Hyperlipemia Hypertension PAST SURGICAL HISTORY Procedure Laterality Date ARTHRS KNE SURG W/MENISCECTOMY MED/LAT W/SHVG Right 2014 CARPAL TUNNEL RIGHT WRIST 2004 SINUS SURGERY PROCEDURE 2003 ALLERGIES Patient has no known allergies. MEDICATIONS Current Outpatient Medications Medication Sig atorvastatin (LIPITOR) 10 mg tablet TAKE 1 TABLET 1 TIME DAILY pioglitazone (ACTOS) 45 mg tablet TAKE 1 TABLET 1 TIME DAILY -GENERIC FOR ACTOS glyBURIDE-metFORMIN (GLUCOVANCE) 2.5-500 mg tablet Take 2 tablets by mouth twice daily. lisinopril (ZESTRIL) 30 mg tablet TAKE 1 TABLET 1 TIME DAILY Lancets lancets Test Two times a day. Insulin Dep? No E11.9 DM 2 blood sugar diagnostic (BLOOD GLUCOSE TEST) test strip Test 2 times daily, Insulin Dep? No E11.9 DM 2 No current facility-administered medications for this visit. FAMILY HISTORY Problem Relation Age of Onset No Known Problems Mother Heart disease Father Cancer Father Basal Cell Carcinoma on eyelid Cancer Maternal Grandmother kidney Hypertension Maternal Grandmother Stroke Maternal Grandmother Dementia Maternal Grandmother due to strokes Cancer Maternal Grandfather bladder Heart Attack Paternal Grandmother cause of Social History Tobacco Use Smoking status: Never Smokeless tobacco: Never Vaping Use Vaping Use: Never used Substance Use Topics Alcohol use: No Comment: ocassionaly 2 beer a week Drug use: No REVIEW OF SYSTEMS GENERAL: No weight loss, malaise or fevers/chills HEENT: Negative for frequent or significant headaches, No changes in hearing or vision. NECK: Negative for lumps, goiter, pain and significant neck swelling RESPIRATORY: Negative for cough, hemoptysis, wheezing, dyspnea or shortness of breath CARDIOVASCULAR: Negative for chest pain, leg swelling, orthopnea, or palpitations GI: No nausea, vomiting, or diarrhea/constipation. No hematochezia/melena. No heartburn or reflux symptoms. : No history of dysuria, frequency or incontinence MUSCULOSKELETAL: Negative for joint pain or swelling. SKIN: Negative for lesions, rash, and itching ENDOCRINE: Negative for cold or heat intolerance, polyuria, polydipsia and goiter NEURO: No history of headaches, syncope, paralysis, seizures or tremors MOOD: Negative for depression, anxiety, or suicidal ideation. EXAM: BP 136/76 Pulse 79 Resp 16 Wt 115.7 kg (255 lb) SpO2 99% BMI 32.73 kg/m? PHYSICAL EXAM: General Appearance: Well appearing, alert, in no acute distress, well-hydrated, well nourished. Skin: Skin color, texture, turgor normal, no suspicious rashes or lesions. Head: Normocephalic, no masses, lesions, tenderness or abnormalities. Eyes: Anicteric sclera. Extraocular movements are intact. Lungs: Lungs clear to auscultation. No wheezing, rhonchi, rales. Heart: RRR without murmur, gallop, or rubs. No ectopy. Extremities: No deformities, edema, skin discoloration, clubbing or cyanosis. Good capillary refill. Unable to assess ulcer due to dressing. Peripheral Pulses: Capillary refill <2secs, strong peripheral pulses. Neurologic: Gait normal. Sensation grossly intact. ASSESSMENT/PLAN: 1. Preoperative clearance - ICD9: V72.84, ICD10: Z01.818 (primary diagnosis) - Get labs completed - Once results are rev (more content not included)... [facility] 03-31-2023 Note HNO ID: [id number] Author: Laura Pedersen Service: ? Author Type: ? Type: Progress Notes Filed: 03/31/2023 4:45 PM Note Text: POPULATION HEALTH NAVIGATION OUTREACH Action/ 1st call, pt was already seen Patient Identified by Name and : YES, via phone Outreach Outcome/Action Spoke to patient / parent / legal guardian: Not interested in scheduling Did you use a PCP flex slot to schedule this appointment? No Reason for Outreach Care Gap or Scheduling/Wellness visits Payer: Payor: AETNA / Plan: AETNA POS / Product Type: POS / Care Gap Reviewed:: Specialty Scheduling Reminder: Reminder note to check Health Maintenance for items below Health Maintenance items due: Pneumococcal Vaccine(1 of 2 - PCV) Never done Shingrix Vaccine(1 of 2) Never done Colorectal Cancer Screening due on 04/29/2021 Urine Albumin:Creatinine Ratio due on 03/06/2023 Navigation Signature: Laura Pedersen March 31, 2023 4:44 PM [facility] 03-31-2023 Note Patient Outreach (AC ) CARISSAAR ([id number]) 1965 M Date Time Provider Department 03/31/23 PCP (HISTORICAL) [facility] During your visit today, we recorded the following information about you: Laura Pedersen 03/31/2023 4:45 PM Signed POPULATION HEALTH NAVIGATION OUTREACH Action/ call, pt was already seen Patient Identified by Name and : YES, via phone Outreach Outcome/Action Spoke to patient / parent / legal guardian: Not interested in scheduling Did you use a PCP flex slot to schedule this appointment? No Reason for Outreach Care Gap or Scheduling/Wellness visits Payer: Payor: AETNA / Plan: AETNA POS / Product Type: POS / Care Gap Reviewed:: Specialty Scheduling Reminder: Reminder note to check Health Maintenance for items below Health Maintenance items due: Pneumococcal Vaccine(1 of 2 - PCV) Never done Shingrix Vaccine(1 of 2) Never done Colorectal Cancer Screening due on 04/29/2021 Urine Albumin:Creatinine Ratio due on 03/06/2023 Navigation Signature: Laura Pedersen March 31, 2023 4:44 PM Allergies As of Date: 03/31/2023 (No Known Allergies) Date Reviewed: 03/26/2023 Reviewed by: Yvette Capps APRN.NURSE REVIEWER - Fully Assessed Prescriptions as of 03/31/2023 - atorvastatin (LIPITOR) 10 mg tablet TAKE 1 TABLET 1 TIME DAILY - pioglitazone (ACTOS) 45 mg tablet TAKE 1 TABLET 1 TIME DAILY -GENERIC FOR ACTOS - glyBURIDE-metFORMIN (GLUCOVANCE) 2.5-500 mg tablet Take 2 tablets by mouth twice daily. - lisinopril (ZESTRIL) 30 mg tablet TAKE 1 TABLET 1 TIME DAILY - Lancets lancets Test Two times a day. Insulin Dep? No E11.9 DM 2 - blood sugar diagnostic (BLOOD GLUCOSE TEST) test strip Test 2 times daily, Insulin Dep? No E11.9 DM 2 Problem List As Of Date 03/31/2023 Noted Resolved Diabetes type 2, controlled (HCC) [E11.9] Hypertension [I10] Hyperlipemia [E78.5] Encounter Status:Closed by LAURA PEDERSEN on 03/31/23 [facility] 03-26-2023 Note HNO ID: [id number] Author: Yvette Capps APRN.NURSE REVIEWER Service: ? Author Type: Nurse Practitioner Type: Progress Notes Filed: 03/26/2023 10:31 AM Note Text: This is a 57 year old male who presents today with: Patient presents with: Wellness HISTORY OF PRESENT ILLNESS: Ar Sherman is a 57 year old male. Patient presents with: Wellness Here in the office for wellness exam Diet: Exercise: Vision: Dental: Sleep: 6.5 hours per night, sleeping on couch with dog. Mood: Denies any increased sadness, anxiety, or SI/HI. Some increase stress with work and family members in the hospital. DM: Reports overall feeling well. Medication side effects: No. Home sugar checks: Has not been checking Hypoglycemic spells: No. Watching diet: Working on eating low carb, struggles with food prep for work Unexpected weight loss: No. Polyuria, polydipsia: No. Vision Changes: No. Wearing glasses Foot lesions or numbness or pain: Yes, some numbness in the toes bilaterally. Has a wound, see below. Taking Actos 45 mg daily, Glucovance 2.5/500 mg, 2 tabs twice daily. Last A1c in June was 9.1, past due for follow up. Non- healing ulcer, left big toe. Started as a blister in mid-summer. Refers he had changed work shoes. Refer once per month, has noticed bleeding. Has been doing wound care at home, cleaning with soap, water, applying antibiotic ointment, gauze. Some mild seeping after work at times. No fever or chills. HTN: Taking lisinopril 30 mg daily. Not currently checking blood pressure at home. Denies chest pain, palpitations, dizziness, or edema Lipid: Taking Lipitor 10 mg daily. Working on diet. Tolerating medication well. Denies any myalgias/leg pain. Colonoscopy: 1998, due at this time. Vaccines: Denies wanting any vaccines at this time. PAST MEDICAL HISTORY: PAST MEDICAL HISTORY Diagnosis Date BPPV (benign paroxysmal positional vertigo) 2017 Diabetes type 2, controlled (HCC) Hgb A1c 6.7% 04/2017 Hyperlipemia Hypertension PAST SURGICAL HISTORY Procedure Laterality Date ARTHRS KNE SURG W/MENISCECTOMY MED/LAT W/SHVG Right 2014 CARPAL TUNNEL RIGHT WRIST 2004 SINUS SURGERY PROCEDURE 2003 ALLERGIES Patient has no known allergies. MEDICATIONS Current Outpatient Medications Medication Sig atorvastatin (LIPITOR) 10 mg tablet TAKE 1 TABLET 1 TIME DAILY pioglitazone (ACTOS) 45 mg tablet TAKE 1 TABLET 1 TIME DAILY -GENERIC FOR ACTOS glyBURIDE-metFORMIN (GLUCOVANCE) 2.5-500 mg tablet Take 2 tablets by mouth twice daily. lisinopril (ZESTRIL) 30 mg tablet TAKE 1 TABLET 1 TIME DAILY Lancets lancets Test Two times a day. Insulin Dep? No E11.9 DM 2 blood sugar diagnostic (BLOOD GLUCOSE TEST) test strip Test 2 times daily, Insulin Dep? No E11.9 DM 2 dapagliflozin (FARXIGA) 5 mg tablet Take 1 tablet by mouth once daily. Take one daily in the morning (Patient not taking: Reported on 03/06/2022) dulaglutide (TRULICITY) 0.75 mg/0.5 mL pen injector Inject 0.75 mg subcutaneously one time a week. Inject dose once per week. Discard Pen After (Patient not taking: Reported on 03/06/2022) No current facility-administered medications for this visit. FAMILY HISTORY Problem Relation Age of Onset No Known Problems Mother Heart disease Father Cancer Father Basal Cell Carcinoma on eyelid Cancer Maternal Grandmother kidney Hypertension Maternal Grandmother Stroke Maternal Grandmother Dementia Maternal Grandmother due to strokes Cancer Maternal Grandfather bladder Heart Attack Paternal Grandmother cause of Social History Tobacco Use Smoking status: Never Smokeless tobacco: Never Vaping Use Vaping Use: Never used Substance Use Topics Alcohol use: No Comment: ocassionaly 2 beer a week Drug use: No REVIEW OF SYSTEMS GENERAL: No weight loss, malaise or fevers/chills HEENT: Negative for frequent or significant headaches, No changes in hearing or vision. NECK: Negative for lumps, goiter, pain and significant neck swelling RESPIRATORY: Negative for cough, hemoptysis, wheezing, dyspnea or shortness of breath CARDIOVASCULAR: Negative for chest pain, leg swelling, orthopnea, or palpitations GI: No nausea, vomiting, or diarrhea/constipation. No hematochezia/melena. No heartburn or reflux symptoms. : No history of dysuria, frequency or incontinence MUSCULOSKELETAL: Negative for joint pain or swelling. SKIN: + Wound left great toe ENDOCRINE: Negative for cold or heat intolerance, polyuria, polydipsia and goiter NEURO: No history of headaches, syncope, paralysis, seizures or tremors MOOD: Negative for depression, anxiety, or suicidal ideation. EXAM: BP 120/76 Pulse 90 Resp 16 Ht 188 cm (6' 2.02 ) Wt 116.1 kg (256 lb) SpO2 98% BMI 32.85 kg/m? PHYSICAL EXAM: General Appearance: Well appearing, alert, in no acute distress, well-hydrated, well nourished. Skin: + Ulcer noted on bottom of left great toe, 1 cm deep, surroundin (more content not included)... [facility] 01-18-2023 Note Patient Outreach ( WAravind) AR SHERMAN ([id number]) 1965 M Date Time Provider Department 01/18/23 RANDI PERALTA During your visit today, we recorded the following information about you: Randi Peralta RPh 01/18/2023 10:16 AM Signed Primary Care Pharmacy Panel Management This patient has been identified through panel management efforts by the primary care pharmacy team. Please contact patient and schedule a pharmacy phone or virtual visit for diabetes management. Please use New Pharmacy, New Pharmacy Phone call, or Video Primary New visit types. Randi Peralta [facility] Charles Hayes 01/18/2023 10:20 AM Signed Received CC'd chart in [facility]. Will call patient tomorrow. Allergies As of Date: 01/18/2023 (No Known Allergies) Date Reviewed: 06/05/2022 Reviewed by: Yvette Capps APRN.NURSE REVIEWER - Fully Assessed Primary Visit Diagnosis:Controlled type 2 diabetes mellitus without complication, unspecified whether terminal carman insulin use (HCC) [E11.9] Order(s):CONSULT TO PHARMACY [[id number]] Order #: [id number]: 1 Prescriptions as of 01/18/2023 - atorvastatin (LIPITOR) 10 mg tablet TAKE 1 TABLET 1 TIME DAILY - blood sugar diagnostic (BLOOD GLUCOSE TEST) test strip Test 2 times daily, Insulin Dep? No E11.9 DM 2 - dapagliflozin (FARXIGA) 5 mg tablet Take 1 tablet by mouth once daily. Take one daily in the morning - dulaglutide (TRULICITY) 0.75 mg/0.5 mL pen injector Inject 0.75 mg subcutaneously one time a week. Inject dose once per week. Discard Pen After - glyBURIDE-metFORMIN (GLUCOVANCE) 2.5-500 mg tablet Take 2 tablets by mouth twice daily. - Lancets lancets Test Two times a day. Insulin Dep? No E11.9 DM 2 - lisinopril (ZESTRIL) 30 mg tablet TAKE 1 TABLET 1 TIME DAILY - pioglitazone (ACTOS) 45 mg tablet TAKE 1 TABLET 1 TIME DAILY -GENERIC FOR ACTOS Problem List As Of Date 01/18/2023 Noted Resolved Diabetes type 2, controlled (HCC) [E11.9] Hypertension [I10] Hyperlipemia [E78.5] Encounter Status:Closed by RANDI PERALTA on 01/18/23 [facility] 01-18-2023 Note HNO ID: [id number] Author: Charles Hayes Service: ? Author Type: ? Type: Progress Notes Filed: 01/18/2023 10:20 AM Note Text: Received CC'd chart in [facility]. Will call patient tomorrow. [facility] 01-18-2023 Note HNO ID: [id number] Author: Randi Peralta RPh Service: ? Author Type: Pharmacist Type: Progress Notes Filed: 01/18/2023 10:16 AM Note Text: Primary Care Pharmacy Panel Management This patient has been identified through panel management efforts by the primary care pharmacy team. Please contact patient and schedule a pharmacy phone or virtual visit for diabetes management. Please use New Pharmacy, New Pharmacy Phone call, or Video Primary New visit types. Randi Peralta RPh [facility] 01-18-2023 History of Presen t illness Narrative Received CC'd chart in [facility]. Will call patient tomorrow. Primary Care Pharmacy Panel Management This patient has been identified through panel management efforts by the primary care pharmacy team. Please contact patient and schedule a pharmacy phone or virtual visit for diabetes management. Please use New Pharmacy, New Pharmacy Phone call, or Video Primary New visit types. Randi Peralta RPh documented in this encounter [facility] 06-08-2022 Miscellaneous Notes Formattin g of this note might be different from the original. Notified via [employer]. Luisa Haley Ma TC to pt. LM to call office, ask for triage nurse to get results. Fadumo Mccann LPN Can you please call the patient and let him know that I reviewed his lab results. A1c has improved from 13.3 to 9.1!!! He has made great progress with improving his glucose. I would still like to set a goal for 7. As discussed at last office visit there are several options in regards to medication adjustments, can you ask if he has checked with insurance to see what is covered. Invokana is another option but again cost is a factor. Potassium was elevated. I would like to get this checked sometime this week to verify this. I have placed repeat labs for 3 months for A1C. I would continue to work on eating a low-carb diet, increasing protein and vegetables. Stay active. Yvette Capps APRN.LIZBETH documented in this encounter [facility] 06-05-2022 Note HNO ID: [id number] Author: Yvette Capps APRN.NURSE REVIEWER Service: ? Author Type: Nurse Practitioner Type: Progress Notes Filed: 06/05/2022 11:39 AM Note Text: This is a 57 year old male who presents today with: Patient presents with: Follow Up: diabetes check HISTORY OF PRESENT ILLNESS: Ar Sherman is a 57 year old male. Patient presents with: Follow Up: diabetes check Here in the office for diabetes check. DM: Reports overall feeling well. Medication side effects: No. Home sugar checks: Fasting 140-170 Hypoglycemic spells: No. Watching diet: Working on eating better. Unexpected weight loss: No. Polyuria, polydipsia: No. Vision Changes: No. Wearing glasses Foot lesions or numbness or pain: No. Taking Actos 45 mg daily, Glucovance 2.5/500 mg, 2 tabs twice daily. Last A1c in March was 13.3. In March with lab results offered long-acting insulin, patient has had difficulty getting medications covered with insurance due to cost. Due for labs at this time. HTN: Taking lisinopril 30 mg daily. Not currently checking blood pressure at home. Denies chest pain, palpitations, dizziness, or edema Lipid: Taking Lipitor 10 mg daily. Working on diet. Tolerating medication well. Denies any myalgias/leg pain. PAST MEDICAL HISTORY: PAST MEDICAL HISTORY Diagnosis Date BPPV (benign paroxysmal positional vertigo) 2016 Diabetes type 2, controlled (HCC) Hgb A1c 6.7% 04/2017 Hyperlipemia Hypertension PAST SURGICAL HISTORY Procedure Laterality Date ARTHRS KNE SURG W/MENISCECTOMY MED/LAT W/SHVG Right 2014 CARPAL TUNNEL RIGHT WRIST 2005 SINUS SURGERY PROCEDURE 2003 ALLERGIES Patient has no known allergies. MEDICATIONS Current Outpatient Medications Medication Sig lisinopril (ZESTRIL) 30 mg tablet TAKE 1 TABLET 1 TIME DAILY pioglitazone (ACTOS) 45 mg tablet TAKE 1 TABLET 1 TIME DAILY -GENERIC FOR ACTOS atorvastatin (LIPITOR) 10 mg tablet TAKE 1 TABLET 1 TIME DAILY glyBURIDE-metFORMIN (GLUCOVANCE) 2.5-500 mg tablet Take 2 tablets by mouth twice daily. Lancets lancets Test Two times a day. Insulin Dep? No E11.9 DM 2 blood sugar diagnostic (BLOOD GLUCOSE TEST) test strip Test 2 times daily, Insulin Dep? No E11.9 DM 2 dapagliflozin (FARXIGA) 5 mg tablet Take 1 tablet by mouth once daily. Take one daily in the morning (Patient not taking: Reported on 03/06/2022) dulaglutide (TRULICITY) 0.75 mg/0.5 mL pen injector Inject 0.75 mg subcutaneously one time a week. Inject dose once per week. Discard Pen After (Patient not taking: Reported on 03/06/2022) FLUoxetine (PROZAC) 20 mg capsule Take 1 capsule by mouth once daily. (Patient not taking: Reported on 03/06/2022) No current facility-administered medications for this visit. FAMILY HISTORY Problem Relation Age of Onset No Known Problems Mother Heart disease Father Cancer Father Basal Cell Carcinoma on eyelid Cancer Maternal Grandmother kidney Hypertension Maternal Grandmother Stroke Maternal Grandmother Dementia Maternal Grandmother due to strokes Cancer Maternal Grandfather bladder Heart Attack Paternal Grandmother cause of Social History Tobacco Use Smoking status: Never Smokeless tobacco: Never Vaping Use Vaping Use: Never used Substance Use Topics Alcohol use: No Comment: ocassionaly 2 beer a week Drug use: No REVIEW OF SYSTEMS GENERAL: No weight loss, malaise or fevers/chills HEENT: Negative for frequent or significant headaches, No changes in hearing or vision. NECK: Negative for lumps, goiter, pain and significant neck swelling RESPIRATORY: Negative for cough, hemoptysis, wheezing, dyspnea or shortness of breath CARDIOVASCULAR: Negative for chest pain, leg swelling, orthopnea, or palpitations GI: No nausea, vomiting, or diarrhea/constipation. No hematochezia/melena. No heartburn or reflux symptoms. : No history of dysuria, frequency or incontinence MUSCULOSKELETAL: Negative for joint pain or swelling. SKIN: Negative for lesions, rash, and itching ENDOCRINE: Negative for cold or heat intolerance, polyuria, polydipsia and goiter NEURO: No history of headaches, syncope, paralysis, seizures or tremors MOOD: Negative for depression, anxiety, or suicidal ideation. EXAM: BP 140/82 Pulse 86 Resp 16 Wt 114.8 kg (253 lb) SpO2 99% BMI 32.48 kg/m? PHYSICAL EXAM: General Appearance: Well appearing, alert, in no acute distress, well-hydrated, well nourished. Skin: Skin color, texture, turgor normal, no suspicious rashes or lesions. Head: Normocephalic, no masses, lesions, tenderness or abnormalities. Eyes: Anicteric sclera. Extraocular movements are intact. Lungs: Lungs clear to auscultation. No wheezing, rhonchi, rales. Heart: RRR without murmur, gallop, or rubs. No ectopy. Extremities: No deformities, edema, skin discoloration, clubbing or cyanosis. Good capillary refill. Peripheral Pulses: Normal, Capillary refill <2secs, strong peripheral (more content not included)... [facility] 06-05-2022 Instructions Yvette Capps APRN.LIZBETH - 06/05/2022 10:15 AM EST Get labs completed. Continue to work on eating a low carb diet, increase lean cuts of meat, veggies, and get some form of exercise. Follow up in 3 months or sooner pending test results. Check with insurance about the following medications: GLP's: Joss Contreras Long acting insulin: Levemir, lantus Oral: Faxiga documented in this encounter [facility] 06-05-2022 History of Presen t illness Narrative This is a 57 year old male who presents today with: Patient presents with: Follow Up: diabetes check HISTORY OF PRESENT ILLNESS: Ar Sherman is a 57 year old male. Patient presents with: Follow Up: diabetes check Here in the office for diabetes check. DM: Reports overall feeling well. Medication side effects: No. Home sugar checks: Fasting 140-170 Hypoglycemic spells: No. Watching diet: Working on eating better. Unexpected weight loss: No. Polyuria, polydipsia: No. Vision Changes: No. Wearing glasses Foot lesions or numbness or pain: No. Taking Actos 45 mg daily, Glucovance 2.5/500 mg, 2 tabs twice daily. Last A1c in March was 13.3. In March with lab results offered long-acting insulin, patient has had difficulty getting medications covered with insurance due to cost. Due for labs at this time. HTN: Taking lisinopril 30 mg daily. Not currently checking blood pressure at home. Denies chest pain, palpitations, dizziness, or edema Lipid: Taking Lipitor 10 mg daily. Working on diet. Tolerating medication well. Denies any myalgias/leg pain. PAST MEDICAL HISTORY: PAST MEDICAL HISTORY Diagnosis Date BPPV (benign paroxysmal positional vertigo) 2016 Diabetes type 2, controlled (HCC) Hgb A1c 6.7% 04/2017 Hyperlipemia Hypertension PAST SURGICAL HISTORY Procedure Laterality Date ARTHRS KNE SURG W/MENISCECTOMY MED/LAT W/SHVG Right 2014 CARPAL TUNNEL RIGHT WRIST 2005 SINUS SURGERY PROCEDURE 2003 ALLERGIES Patient has no known allergies. MEDICATIONS Current Outpatient Medications Medication Sig lisinopril (ZESTRIL) 30 mg tablet TAKE 1 TABLET 1 TIME DAILY pioglitazone (ACTOS) 45 mg tablet TAKE 1 TABLET 1 TIME DAILY -GENERIC FOR ACTOS atorvastatin (LIPITOR) 10 mg tablet TAKE 1 TABLET 1 TIME DAILY glyBURIDE-metFORMIN (GLUCOVANCE) 2.5-500 mg tablet Take 2 tablets by mouth twice daily. Lancets lancets Test Two times a day. Insulin Dep? No E11.9 DM 2 blood sugar diagnostic (BLOOD GLUCOSE TEST) test strip Test 2 times daily, Insulin Dep? No E11.9 DM 2 dapagliflozin (FARXIGA) 5 mg tablet Take 1 tablet by mouth once daily. Take one daily in the morning (Patient not taking: Reported on 03/06/2022) dulaglutide (TRULICITY) 0.75 mg/0.5 mL pen injector Inject 0.75 mg subcutaneously one time a week. Inject dose once per week. Discard Pen After (Patient not taking: Reported on 03/06/2022) FLUoxetine (PROZAC) 20 mg capsule Take 1 capsule by mouth once daily. (Patient not taking: Reported on 03/06/2022) No current facility-administered medications for this visit. FAMILY HISTORY Problem Relation Age of Onset No Known Problems Mother Heart disease Father Cancer Father Basal Cell Carcinoma on eyelid Cancer Maternal Grandmother kidney Hypertension Maternal Grandmother Stroke Maternal Grandmother Dementia Maternal Grandmother due to strokes Cancer Maternal Grandfather bladder Heart Attack Paternal Grandmother cause of Social History Tobacco Use Smoking status: Never Smokeless tobacco: Never Vaping Use Vaping Use: Never used Substance Use Topics Alcohol use: No Comment: ocassionaly 2 beer a week Drug use: No REVIEW OF SYSTEMS GENERAL: No weight loss, malaise or fevers/chills HEENT: Negative for frequent or significant headaches, No changes in hearing or vision. NECK: Negative for lumps, goiter, pain and significant neck swelling RESPIRATORY: Negative for cough, hemoptysis, wheezing, dyspnea or shortness of breath CARDIOVASCULAR: Negative for chest pain, leg swelling, orthopnea, or palpitations GI: No nausea, vomiting, or diarrhea/constipation. No hematochezia/melena. No heartburn or reflux symptoms. : No history of dysuria, frequency or incontinence MUSCULOSKELETAL: Negative for joint pain or swelling. SKIN: Negative for lesions, rash, and itching ENDOCRINE: Negative for cold or heat intolerance, polyuria, polydipsia and goiter NEURO: No history of headaches, syncope, paralysis, seizures or tremors MOOD: Negative for depression, anxiety, or suicidal ideation. EXAM: BP 140/82 Pulse 86 Resp 16 Wt 114.8 kg (253 lb) SpO2 99% BMI 32.48 kg/m PHYSICAL EXAM: General Appearance: Well appearing, alert, in no acute distress, well-hydrated, well nourished. Skin: Skin color, texture, turgor normal, no suspicious rashes or lesions. Head: Normocephalic, no masses, lesions, tenderness or abnormalities. Eyes: Anicteric sclera. Extraocular movements are intact. Lungs: Lungs clear to auscultation. No wheezing, rhonchi, rales. Heart: RRR without murmur, gallop, or rubs. No ectopy. Extremities: No deformities, edema, skin discoloration, clubbing or cyanosis. Good capillary refill. Peripheral Pulses: Normal, Capillary refill <2secs, strong peripheral pulses, Pulses palpable. Neurologic: Gait normal. Sensation grossly intact. ASSESSMENT/PLAN: 1. Type 2 diabetes mellitus without complication, without long-term current use of insulin (HCC) - ICD9: 250.00, ICD10: E11.9 (primary diagnosis) - Uncontrolled - Continue current medications - Counseled on healthy diet and regular exercise - Get labs completed, will determine medication plan once results are reviewed. - HGB A1C - COMP METABOLIC PANEL - PIOGLITAZONE 45 MG TABLET - GLYBURIDE 2.5 MG-METFORMIN 500 MG TABLET 2. Hyperlipidemia, unspecified hyperlipidemia type - ICD9: 272.4, ICD10: E78.5 - good control - Continue current medication. - Encouraged following a low fat, low cholesterol diet. - ATORVASTATIN 10 MG TABLET 3. Essential hypertension - ICD9: 401.9, ICD10: I10 - suboptimal control - Encouraged dietary sodium restriction/DASH diet - Recommended regular aerobic exercise. - Recommend home blood pressure monitoring, to bring results in on next visit - Discussed need and benefit for weight loss. - Goal of BP <130/80 - LISINOPRIL 30 MG TABLET Follow-up in 3 months or sooner pending test results. Discussed treatment plan and patient voices understanding. Patient's questions answered appropriately. Medications and potential side effects were discussed and patient voices understanding. Yvette Capps APRN.LIZBETH This note was partially generated using [employer] voice recognition system. Note was reviewed for accuracy. There may be minor misspellings or grammar miscues with [employer] voice recognition. documented in this encounter [facility] 03-06-2022 Instructions Yvette Capps APRN.CNP - 03/06/2022 10:42 AM EST Get fasting labs completed today. Continue with current medication Work on low carb diet, increase protein, veggies, and get some form of exercise. May track food, myfitnesspal. Check fasting sugars at home, keep a log, bring next visit. Follow up in 3 months or sooner as needed. Health Promotion: - Eat healthy -- go to [email or web address] to get started - Have a yearly physical - Get at least 30 minutes of physical activity daily - Get at least 7 to 8 hours of sleep each night - Reach and maintain a healthy weight - Get help to quit or don't start smoking - Limit alcohol use to one drink or less - Do not use illegal drugs or misuse prescription drugs - Wear a helmet when riding a bike and wear protective gear for sports - Wear a seatbelt in cars and not text and drive - Wear sunscreen documented in this encounter [facility] 03-06-2022 History of Presen t illness Narrative This is a 56 year old male who presents today with: Patient presents with: Wellness: Work form HISTORY OF PRESENT ILLNESS: Ar Sherman is a 56 year old male. Patient presents with: Wellness: Work form Here in the office for wellness exam. Working 2nd shift at [employer]. 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 Will need form completed for employer. Diet: Needs to work on eating better. Exercise: Staying active at work, walking. Vision: Due for exam, wears glasses. Dental: Due for exam, no difficulties. Sleep: Working 2nd shift, refers sleep is getting better. Sleeping 6-7 hours per night. Mood: Has taken prozac in the past, was taking due to stress. No longer needed medication. Denies any increased sadness, anxiety, or SI/HI. HTN: Lisinopril 30 mg daily. Currently not checking blood pressure at home. Denies chest pain, palpitations, dizziness, or edema. Lipids: Taking Lipitor 10 mg daily. Denies any leg pain, Tolerating medication well. DM: Reports overall feeling well. Medication side effects: No. Home sugar checks: No glucometer Hypoglycemic spells: No. Watching diet: No. Unexpected weight loss: No. Polyuria, polydipsia: No. Vision Changes: No. Foot lesions or numbness or pain: No. Taking Glucovance 2.5/500 mg 2 tablets daily, Actos 45 mg daily. Last A1c was 9.7 in March 2021. Was prescribed but cost too much Farxiga and Trulicity. Colonoscopy: Last colonoscopy 1999, fecal stool normal 2020. PSA: Has never had completed. Vaccines: Denied wanting any vaccines at this time. PAST MEDICAL HISTORY: PAST MEDICAL HISTORY Diagnosis Date BPPV (benign paroxysmal positional vertigo) 2016 Diabetes type 2, controlled (HCC) Hgb A1c 6.7% 04/2017 Hyperlipemia Hypertension PAST SURGICAL HISTORY Procedure Laterality Date CARPAL TUNNEL RIGHT WRIST 2004 KNEE SCOPE,MENISECTOMY,MED OR LAT Right 2013 SINUS SURGERY PROCEDURE 2004 ALLERGIES Patient has no known allergies. MEDICATIONS Current Outpatient Medications Medication Sig ZESTRIL 30 mg tablet TAKE 1 TABLET 1 TIME DAILY pioglitazone (ACTOS) 45 mg tablet TAKE 1 TABLET 1 TIME DAILY -GENERIC FOR ACTOS atorvastatin (LIPITOR) 10 mg tablet TAKE 1 TABLET 1 TIME DAILY glyBURIDE-metFORMIN (GLUCOVANCE) 2.5-500 mg tablet Take 2 tablets by mouth twice daily. dapagliflozin (FARXIGA) 5 mg tablet Take 1 tablet by mouth once daily. Take one daily in the morning dulaglutide (TRULICITY) 0.75 mg/0.5 mL pen injector Inject 0.75 mg subcutaneously one time a week. Inject dose once per week. Discard Pen After FLUoxetine (PROZAC) 20 mg capsule Take 1 capsule by mouth once daily. No current facility-administered medications for this visit. FAMILY HISTORY Problem Relation Age of Onset No Known Problems Mother Heart disease Father Cancer Father Basal Cell Carcinoma on eyelid Cancer Maternal Grandmother kidney Hypertension Maternal Grandmother Stroke Maternal Grandmother Dementia Maternal Grandmother due to strokes Cancer Maternal Grandfather bladder Heart Attack Paternal Grandmother cause of Social History Tobacco Use Smoking status: Never Smokeless tobacco: Never Vaping Use Vaping Use: Never used Substance Use Topics Alcohol use: No Comment: ocassionaly 2 beer a week Drug use: No REVIEW OF SYSTEMS GENERAL: No weight loss, malaise or fevers/chills HEENT: Negative for frequent or significant headaches, No changes in hearing or vision. NECK: Negative for lumps, goiter, pain and significant neck swelling RESPIRATORY: Negative for cough, hemoptysis, wheezing, dyspnea or shortness of breath CARDIOVASCULAR: Negative for chest pain, leg swelling, orthopnea, or palpitations GI: No nausea, vomiting, or diarrhea/constipation. No hematochezia/melena. No heartburn or reflux symptoms. : No history of dysuria, frequency or incontinence MUSCULOSKELETAL: Negative for joint pain or swelling. SKIN: Negative for lesions, rash, and itching ENDOCRINE: Negative for cold or heat intolerance, polyuria, polydipsia and goiter NEURO: No history of headaches, syncope, paralysis, seizures or tremors MOOD: Negative for depression, anxiety, or suicidal ideation. EXAM: BP 130/82 Pulse 84 Resp 16 Wt 110.7 kg (244 lb) SpO2 100% BMI 31.33 kg/m PHYSICAL EXAM: General Appearance: Well appearing, alert, in no acute distress, well-hydrated, well nourished. Skin: Skin color, texture, turgor normal, no suspicious rashes or lesions. Head: Normocephalic, no masses, lesions, tenderness or abnormalities. Eyes: Anicteric sclera. Extraocular movements are intact. Neck: Supple, no adenopathy; thyroid symmetric, normal size, no bruits. Lungs: Lungs clear to auscultation. No wheezing, rhonchi, rales. Heart: RRR without murmur, gallop, or rubs. No ectopy. Abdomen: Normal abdominal exam, Abdomen soft, non-tender. Bowel sounds normal. No masses, organomegaly, Negative CVA tenderness. Extremities: No deformities, edema, skin discoloration, clubbing or cyanosis. Good capillary refill. Musculoskeletal: No joint swelling, deformity, or tenderness. Peripheral Pulses: Normal, Capillary refill <2secs, strong peripheral pulses, Pulses palpable. Neurologic: Gait normal. Reflexes normal and symmetric. Sensation grossly intact. Mood: Pleasant, good eye contact, engaged. ASSESSMENT/PLAN: 1. Wellness examination - ICD9: V70.0, ICD10: Z00.00 (primary diagnosis) - Counseled on healthy diet and regular exercise - Discussed need for and benefit of weight loss. BMI 31.33 kg/(m^2) - Colorectal cancer screening recommended - screening declined - Depression screening tool completed and reviewed with patient. Based on score and interview, patient is not at risk for depression and recommended no further intervention at this time. - Follow up for annual exam in one year - COMP METABOLIC PANEL 2. Type 2 diabetes mellitus without complication, without long-term current use of insulin (HCC) - ICD9: 250.00, ICD10: E11.9 The patient is new to me. - Continue current medications - Encouraged regular aerobic exercise and weight loss - Get labs completed. - Instructed to monitor Fasting glucose at home, record and bring to next visit. - Medication changes will be addressed after A1C results are reviewed. - Work on eating a low-carb diet, increase protein, vegetables, and get some form of exercise. - PIOGLITAZONE 45 MG TABLET - GLYBURIDE 2.5 MG-METFORMIN 500 MG TABLET - HGB A1C - ALBUMIN/CREAT RATIO RND UR - LANCETS - BLOOD GLUCOSE CONTROL, NORMAL SOLUTION - BLOOD GLUCOSE TEST STRIPS - BLOOD-GLUCOSE METER 3. Essential hypertension - ICD9: 401.9, ICD10: I10 - suboptimal control - Continue current medication(s) - Recommended regular aerobic exercise. - Goal of BP <130/80 - LISINOPRIL 30 MG TABLET 4. Hyperlipidemia, unspecified hyperlipidemia type - ICD9: 272.4, ICD10: E78.5 - to be determined upon return of lab results - Continue current medication. - Encouraged following a low fat, low cholesterol diet. - Discussed the benefits of regular aerobic exercise and weight loss. - ATORVASTATIN 10 MG TABLET - LIPID PANEL BASIC 5. Screening for prostate cancer - ICD9: V76.44, ICD10: Z12.5 - PSA/PROSTSPECAG SCRN Follow-up in 3 months or sooner as needed. Discussed treatment plan and patient voices understanding. Patient's questions answered appropriately. Medications and potential side effects were discussed and patient voices understanding. Yvette Capps APRN.NURSE REVIEWER This note was partially generated using [employer] voice recognition system. Note was reviewed for accuracy. There may be minor misspellings or grammar miscues with [employer] voice recognition. documented [facility] Type 2 diabetes mellitus without complication, without long-term current use of insulin (HCC)- Primary Hyperlipidemia, unspecified hyperlipidemia type Essential hypertension Unspecified essential hypertension [facility] Diagnosis Type 2 diabetes mellitus without complication, without long-term current use of insulin (HCC)- Primary Serum potassium elevated Hyperpotassemia [facility] Diagnosis Controlled type 2 diabetes mellitus without complication, unspecified whether residential insulin use (HCC)- Primary documented in this encounter [facility] Summary Purpose Family History No Family History Records Found Advance Directives No Advanced Directives Records Found Additional Source Comments Source Comments (unrecognize d section and content) In the event this informatio n is protected by the Federal Confidentiality of Alcohol and Drug Abuse Patient Records regulations: The Federal rules restrict any use of the information to criminally investigate or prosecute any alcohol or drug abuse patient.[facility] the event this information is protected by the Federal Confidentiality of Alcohol and Drug Abuse Patient Records regulations: The Federal rules restrict any use of the information to criminally investigate or prosecute any alcohol or drug abuse patient.[facility] event this information is protected by the Federal Confidentiality of Alcohol and Drug Abuse Patient Records regulations: The Federal rules restrict any use of the information to criminally investigate or prosecute any alcohol or drug abuse patient.[facility] Hospital[facility] the event this information is protected by the Federal Confidentiality of Alcohol and Drug Abuse Patient Records regulations: The Federal rules restrict any use of the information to criminally investigate or prosecute any alcohol or drug abuse patient.[facility] Hospital[facility] the event this information is protected by the Federal Confidentiality of Alcohol and Drug Abuse Patient Records regulations: The Federal rules restrict any use of the information to criminally investigate or prosecute any alcohol or drug abuse patient.[facility] Care Teams (unrecognized sec tion and content) Food Service Helper Relationship Specialty Start Date End Date Savannah Brasher MD [address], [place] [id number] PCP - General Family Medicine 05/16/18 Food Service Helper Relationship Specialty Start Date End Date Savannah Brasher MD [address], [place] [id number] PCP - General Family Medicine 05/16/18 Food Service Helper Relationship Specialty Start Date End Date Savannah Brasher MD [address] [place] [address] PCP - General Family Medicine 05/16/18 Food Service Helper Relationship Specialty Start Date End Date Savannah Brasher MD [address] [place] [address] PCP - General Family Medicine 05/16/18 Reason for Visit (unrecogniz ed section and content) Reason Comments Follow Up diabetes check Reason Comments Results Labs (unrecognized sect ion and content) No Status Records Found INFORMATION SOURCE (unrecogn ized section and content) FOR RECORDS PERTAINING TO PATIENTS WHO ARE OR HAVE BEEN ENROLLED IN A CHEMICAL DEPENDENCY/SUBSTANCEABUSE PROGRAM, SOME INFORMATION MAY BE OMITTED. This clinical summary was aggregated from multiple sources. Caution should be exercised in using it in the provision of clinical care. This summary normalizes information from multiple sources, and as a consequence, information in this document may materially change the coding, format and clinical context of patient data. In addition, data may be omitted in some cases. CLINICAL DECISIONS SHOULD BE BASED ON THE PRIMARY CLINICAL RECORDS. [employer] provides no warranty or guarantee of the accuracy or completeness of information in this document.
[2023-05-14] MEDS: Magnesium 2 GM for ERAS IV (06:03)
[2023-05-14] MEDS: Lactated Ringers 1,000 ML 15 ML IV (06:03)
[2023-05-14] MEDS: Gabapentin 600 MG Tablet PO (06:06)
[2023-05-14] MEDS: Acetaminophen 500 MG Tablet 1000 MG PO (06:06)
[2023-05-14 06:40] LABS: Bedside Glucose 140 mg/dL (74-106)
--- NOTE | 2023-05-14 07:10 | RAD_ITS ---
STUDY: X-RAY LEFT FOOT, GREAT TOE REASON FOR EXAM: Male, 58 years old. IPJ ARTHROPLASTY OF LEFT HALLUX TECHNIQUE: Single frontal spot film of the right great toe was obtained. COMPARISON: Left foot radiographs dated 04/01/2023. FINDINGS: There is new osteotomy of the head of the first proximal phalanx with arthroplasty of the interphalangeal joint. Intact distal phalanx of the great toe. Normal visualized metatarsus. Normal metatarsophalangeal (M.T.P) joint. RAD/Toe(s) Min 2 Views IMPRESSION: New osteotomy of the head of the first proximal phalanx with arthroplasty of the interphalangeal joint. Electronically Signed: Uriel Ramon MD at 9:21 EST ,
[2023-05-14] MEDS: Cefazolin 2 GM in 0.9% Normal Saline (100mL Bag) 100 ML IV (07:27)
[2023-05-14] MEDS: Bupivacaine Mpf 0.5% 30 ML VIAL (07:40)
--- NOTE | 2023-05-14 08:36 | OP.PCM_ITS ---
Problems Associated Problem List Diagnoses (1) Other deformities of toe(s) (acquired), left foot: (2) Non-pressure chronic ulcer of other part of left foot with fat layer exposed: (3) Acute painful diabetic polyneuropathy: Report of Operation Date of Procedure: 05/14/23 Pre-Operative Diagnosis: 1. Deformity of toe, left hallux, left foot 2. Full-thickness ulceration plantar hallux, left foot 3. Diabetes mellitus type 2, controlled Post-Operative Diagnosis: 1. Deformity of toe, left hallux, left foot 2. Full-thickness ulceration plantar hallux, left foot 3. Diabetes mellitus type 2, controlled Surgery/Procedure Performed:: 1. Interphalangeal joint arthroplasty, left hallux 2. Surgical skin graft site prep, left hallux 3. Application of skin graft substitute, left hallux Description of Surgical Findings:: 1. Sanguinous bleeding after debridement of the full-thickness ulceration with no concern of infection, left hallux. 2. 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 3. No concern for osteomyelitis to the removed portion of bone from the left hallux. Surgeon: Tavon Fajardo printing machinist: None Type of Anesthesia: General and Local Anesthesiologist: Joselo Red Special Medications: Per anesthesia Specimen's removed: Head of the proximal phalanx, left hallux Drains: None Estimated Blood Loss (mL): 25 mL Fluids Replaced: Per anesthesia Description of Procedure: Indications For Operation: Mr. Sherman is a 58-year-old diabetic male who was admitted to [facility] for elective surgery to the left hallux secondary to full- thickness ulceration to the plantar aspect of the left hallux secondary to osteoarthritis. Patient is well-known to me at the wound care center. We have been doing outpatient excisional debridement with collagen application to the plantar wound of the left hallux. Due to the chronicity of the wound educated the patient about surgical versus conservative matters regarding treatment of his wound. The patient would like to speed up the healing process thus electing to move forward with elective surgery stated above. Patient was seen in my private office for surgical consultation with all risk and benefits discussed with him and his in great detail. Due to chronicity of the full-thickness ulceration has been deemed necessary at this time to take the patient to the operating room to perform the above procedures to help heal his wound and relieve his constant pain. The nature of the problem, anticipated procedures, postop recovery/convalences and risk/complications include but not limited to infection, wound healing complications, digital amputation, hypertrophic scarring, numbness, tingling, chronic pain, CRPS, over and under correction, recurrence of deformity, DVT and or PE and the need for further surgery have been discussed in great detail with the patient. All questions have been answered to the patient's satisfaction. There are no guarantees given as to the outcome of the procedure. Description of Procedure: Under mild sedation, the patient was brought into the operating room and placed on the operating table in supine position. Once the patient was under general anesthesia with laryngeal mask airway, the left lower extremity was blocked using approximately 10 cc 0.5% Marcaine plain. Next, a well-padded thigh tourniquet was applied to the left lower extremity. Next, the left lower extremity was prepped and draped in normal aseptic manner. Next, a timeout was then undertaken verifying the correct patient, extremity, visibility of preoperative markings, availability of the equipment. Next, attention was directed to the left lower extremity. Using a 4 inch Esmarch, left lower extremity was exsanguinated and elevated to 60 degrees for 1 minute. Procedure #1, IPJ arthroplasty, left hallux Next, attention was directed to the left hallux. Using a #15 blade, a full- thickness incision approximately 2 and half centimeters was made equidistant across the medial aspect of the left hallux. Continued blunt dissection was carried down to bone. Care was not to violate the long extensor and flexors of the left hallux. The IPJ joint was identified and showed evidence of severe osteoarthritis. Using the MIS bur the osteotomy was performed approximately 8 mm from the IPJ joint of the left hallux. The plantar cut was cut first followed by the dorsal cut. Using a [place] elevator, all soft tissue was removed around the head of the proximal phalanx. A [place] elevator was used to further free the soft tissue on the lateral aspect of the IPJ/proximal phalanx head. Using a Eva and 15 blade the head of the proximal phalanx was removed and passed the back table to be split in half, for have to be sent to microbiology for culture and sensitivity and the other half to be sent for pa thology identification. Hallux IPJ was put through range of motion and showed to have increased range of motion thus flattening a floppy toe. Procedure #2, surgical skin graft site prep, left hallux Next, attention was directed to the plantar aspect left hallux. There showed evidence of a full-thickness ulceration measuring 1.0 x 0.4 x 0.2 cm. Using a rongeur excisional [place] down to including subcutaneous tissue was performed to prepare the graft site. Sanguinous drainage was noted. The ulceration area was wiped clean and patted dry. Procedure #3 application of skin graft substitute, left hallux Next, attention was directed to the plantar aspect of the left hallux which was surgically prepped. Using [employer] BioSkin 2 x 4 cm skin graft substitute, it was applied to the full-thickness ulceration without incident. At this time the tourniquet was deflated and instant reperfusion was noted to the left lower extremity. The left lower extremity was wiped clean and patted dry. The ulceration and skin graft was dressed with Adaptic and quarter inch Steri-Strips. The incision to the medial aspect left hallux was flushed with copious kala of warm saline. The deep layer was closed with 3-0 Vicryl in buried suture technique. The skin was reapproximated and closed with 3-0 nylon in simple interrupted suture technique. Injection of Viaflow 2.5 cc was done at the level of the osteotomy to aid in healing. Again the left lower extremity was wiped clean and patted dry. The medial incision was dressed with Betadine so aked Adaptic followed by 4 x 4's to the left hallux, dry sterile dressing and a single layer Cowart compression bandage was donned to the left lower extremity. The patient tolerated the procedure and anesthesia well and apparent satisfactory condition and was transported to the PACU for further monitoring prior to discharge home. Vital signs stable and vascular status intact to all digits bilateral. Post Operative Plan: Weightbearing: Partial weightbearing to heel with surgical shoe left lower extremity. Full weightbearing right lower extremity. Antibiotics: 2 g cefazolin through the IV DVT Prophylaxis: Aspirin 81 mg daily Good: None Dressing: Betadine soaked Adaptic, Adaptic, Steri-Strips dry sterile dressing single layer Cowart compression bandage left lower extremity X-Rays: Post-operative films taken on the operating room. Pain Medication: Percocet 5/325, Flexeril 10 mg Follow-up: Patient will follow-up with Dr. Fajardo at the wound care center next Wednesday. Grafts/Implants Used: 1. Via flow 2.5 cc, BioSkin 2 x 4 cm Complications None Admit VTE Documentation VTE Present on Admission: No VTE Mechan Device Prophylaxis: SCD's VTE Pharm Prophylaxis ordered?: Yes
[2023-05-14] MEDS: Oxycodone/Apap 5/325 Tablet PO (08:48)
[2023-05-14 09:16] LABS: Bedside Glucose 169 mg/dL (74-106)
== END 2023-05-14 10:27 | disposition home or self-care (01) ==
LOC: SDC 05:27 → AC 05:29
PROVIDERS: PCP Family Medicine; Referring Provider Podiatrist Foot & Ankle Surgery; Visit Provider Podiatrist Foot & Ankle Surgery
PROC: (CPT 28153; principal; 2023-05-14 07:15)
DX: E11.621 Type 2 diabetes mellitus with foot ulcer (principal); L97.522 Non-pressure chronic ulcer of other part of left foot with fat layer exposed; L97.923 Non-pressure chronic ulcer of unspecified part of left lower leg with necrosis of muscle; E11.42 Type 2 diabetes mellitus with diabetic polyneuropathy; M19.072 Primary osteoarthritis, left ankle and foot; I10 Essential (primary) hypertension; E78.5 Hyperlipidemia, unspecified
CPT/HCPCS: 28153; 01480; 15004; 11042; 36415; 73660; 76000; 80323; 82306; 82962; 83036; 83735; 87070; 87075; 87077; 87081; 87186; 87205; 88304; 88311; J7120; G0480; J2405

== ENCOUNTER 2023-06-02 10:00 | Outpatient (RCR) | payer OTHER, SELFPAY ==
[2023-05-06 00:56] VITALS: BP 158/90; PULSE 88; RESP 16; TEMP 35.3; BMI 32.8
[2023-05-12 09:57] VITALS: BP 130/72; PULSE 88; RESP 18; TEMP 36.8; BMI 32.8
--- NOTE | 2023-05-12 10:31 | PN.PCM_ITS ---
History of Present Illness Date of Service: 05/12/23 Chief Complaint: Left foot wound History of Wound: Left foot wound for 5 months Subjective Subjective Mr. Pappas is a 58-year-old diabetic male presenting to wound care center today for follow-up and evaluation of full-thickness ulceration to the plantar aspect of his left big toe. He admits to having controlled blood sugar. He has been doing home dressing changes as instructed without complications. Plan for surgical intervention to the left great toe on 12/27. Patient did see vascular surgery and commented that if there is poor healing after surgery will recommend angiogram to the left lower extremity. Also in regards to the patient's venous reflux would recommend compression stockings long-term. He denies any trauma. Denies constitutional symptoms. No other pedal complaints at this time. Objective Data Objective Data Vital Signs: Vital Signs Temp Pulse Resp BP 98.2 F 88 18 130/72 H 05/12/23 09:57 05/12/23 09:57 05/12/23 09:57 05/12/23 09:57 Weight: 116.12 kg Body Mass Index (BMI) 32.8 Physical Exam Narrative Vascular: DP and PT pulses are palpable. CFT is brisk. Evidence of blanchable erythema appreciated left hallux. Nonpitting edema appreciated to left lower extremity. Neurological: Light touch is intact. Protective sensation is absent. Patient does not respond to painful stimuli. Dermatological: Full-thickness ulceration to the plantar medial aspect of the left hallux measuring 1.5 x 0.6 x 0.2 cm. Evidence of exposure to muscle. Evidence of hyperkeratotic periwound. Blanchable erythema without proximal streaking. No evidence of drainage or purulent drainage. No probe to bone. Excisional debridement down to and including subcutaneous tissue with #15 blade to the left hallux full-thickness ulceration without incident. Predebridement measurement was 1.0 x 0.4 x 0.1 cm. Postdebridement measurement is 1.5 x 0.6 x 0.2 cm. Musculoskeletal: Decreased range of motion to the first metatarsal phalangeal joint as well as the IPJ of the left hallux. No pain with palpation of the full-thickness ulceration left hallux. No pain with calf pression. Debridement Note Debridement Note Debridement Free Text: Excisional debridement down to and including subcutaneous tissue with #15 blade to the left hallux full-thickness ulceration without incident. Predebridement measurement was 1.0 x 0.4 x 0.1 cm. Postdebridement measurement is 1.5 x 0.6 x 0.2 cm. Post-Debridement Measurements and Additional Note: Post-Debridement Measurements/Treatment WC - Nurse 1 - General Ulcer Assessment Start: 05/12/23 09:55 Freq: Status: Active Protocol: RIDGE Activity Type Activity Date Activity User E-sign Co-sign Detail Recorded Client Recorded Date Recorded By Document 05/12/23 09:57 PL Tablet 05/12/23 10:00 PL 05/12/23 09:57 WC - Today's Visit Information Type of service Follow-up Visit (Physician/SHIP STEWARD ) Arrival Mode Ambulatory Transfer Assistance None Patient Identification Verified (Name & Yes ) Patient Requires Transmission-Based No Precautions Height and Weight Body Mass Index (BMI) 32.8 BMI Classification Obese Vital Signs Temperature (97.8 F-99.1 F) 98.2 F Temperature Source Temporal Pulse Rate (60-100) 88 Respiratory Rate (12-18) 18 Blood Pressure (90/60-120/80) 130/72 H Blood Pressure Mean (mm Hg) 91 History Since Last Visit- (Skip if this is Patient's initial visit) Have you changed medications since your No last visit? Any new allergies or adverse reactions No Had a fall/change in ADL's that may No increase risk of falls Signs or symptoms of abuse and/or No neglect since last visit Have you been in the hospital since your No last visit? Has dressing in place as prescribed Yes Has compression in place as prescribed N/A Has offloadiing in place as prescribed N/A Experienced any changes in pain level or No management Pain Scale: 0-10 Numeric Is Patient Pain Free? Yes - Nurse 1 - General Ulcer Measurement Start: 05/12/23 09:55 Freq: Status: Active Protocol: Activity Type Activity Date Activity User E-sign Co-sign Detail Recorded Client Recorded Date Recorded By Document 05/12/23 09:57 PL Tablet 05/12/23 10:00 PL 05/12/23 09:57 Wound Center Nurse 1 #1- L PLANTAR HALLUX -Current Size (cm) - Length 1.0 -Current Size (cm) - Width 0.5 -Current Size (cm) - Depth 0.3 -Total Square Cm 0.50 -Photo Taken No -Exudate Amt Medium -Exudate Type Serosanguineous -Granulation Amt Medium (34-66%) -Granulation Quality Pale -Slough/Fibrin No -Necrosis Amt Medium (34-66%) -Necrotic Tissue Type Adherent Slough - Nurse 2 - General Ulcer CM Notes Start: 05/12/23 09:55 Freq: Status: Active Protocol: Activity Type Activity Date Activity User E-sign Co-sign Detail Recorded Client Recorded Date Recorded By Document 05/12/23 10:05 Laptop 05/12/23 10:09 05/12/23 10:05 Wound Center Nurse 2 -Time 10:05 -Correct Patient Yes -Correct Side, Site, Position Yes -Correct Procedure Yes -Procedure Performed Yes -Type of Procedure Debridement -Clinical Debridement Subcutaneous -Tissue Removed Subcutaneous -Post Debridement (cm) - Length 1.5 -Post Debridement (cm) - Width 0.6 -Post Debridement (cm) - Depth 0.2 -Total Square (Post) (cm) 0.90 -Area of Debridement (cm) - Length 1.5 -Area of Debridement (cm) - Width 0.6 -Total Square (Area) (cm) 0.90 -Tunneling No -Undermining/Tunneling No -Circular Undermining No -Wound/Ulcer Outcome Not Healed -Ulcer Cleansing Rinsed/ Irrigated with Saline -Foul Odor after Cleansing No -Bioengineered Tissue No -Bleeding Controlled with Pressure -Treatment Response Procedure Tolerated Well -Offloading No -Debridement - Subq, 1st 20sq cm Yes Pain Scale: 0-10 Numeric Is Patient Pain Free? Yes - Nurse 3 - General Ulcer D/C NN Start: 05/12/23 09:55 Freq: Status: Active Protocol: Activity Type Activity Date Activity User E-sign Co-sign Detail Recorded Client Recorded Date Recorded By Document 05/12/23 10:19 PL Tablet 05/12/23 10:20 PL 05/12/23 10:19 Wound Care Center Nurse 3 #1- L PLANTAR HALLUX -Ulcer Cleansing Rinsed/ Irrigated with Saline -Foul Odor after Cleansing No -Other Dressing Melinda, -Primary Dressing Covered/Secured with Dry Gauze & Roll Gauze, Secured with Tape Pain Scale: 0-10 Numeric Is Patient Pain Free? Yes - Visit Discharge Discharge Condition Stable Ambulatory Status Ambulatory Transportation Private Auto Assessment/Plan Assessment/Plan (1) Non-pressure chronic ulcer of other part of left foot with fat layer exposed: CODE(S): L97.522 - Non-pressure chronic ulcer of other part of left foot with fat layer exposed PLAN: Patient was examined and evaluated. All findings were discussed with the patient. All questions were answered to the patient's satisfaction. Excisional debridement down to and including subcutaneous tissue with #15 blade to the left hallux full-thickness ulceration without incident. Predebridement measurement was 1.0 x 0.4 x 0.1 cm. Postdebridement measurement is 1.5 x 0.6 x 0.2 cm. Hallux is white clean and patted dry to the left foot. The area was dressed with Melinda, Betadine paint and dry sterile dressing was donned followed by compression bandage. The patient will follow-up this Wednesday for surgical intervention. All risk and benefit were discussed with the patient. He did have surgical consultation in private office. Follow-up at the wound care center with Dr. Fajardo in 1 week. (2) Acute painful diabetic polyneuropathy: CODE(S): E11.42 - Type 2 diabetes mellitus with diabetic polyneuropathy
[2023-05-19 09:54] VITALS: BP 117/80; PULSE 100; RESP 18; BMI 32.8
--- NOTE | 2023-05-19 11:53 | PCM.WC.PN ---
History of Present Illness Date of Service: 05/19/23 Chief Complaint: Left foot wound History of Wound: Left foot wound for 5 months Subjective Subjective Mr. Sherman is a 58-year-old diabetic male presenting to clinic today for follow-up status post left lower extremity IPJ arthroplasty, surgical skin graft site prep with application of skin graft substitute. Date of surgery: 05/14/2023. Patient admits he has no pain during today's visit. He does admit to bumping the toe 1 or 2 times while at home where he had a use of the pain medication for relief. Overall he is grateful for his care. He has kept his postoperative dressing clean dry and intact. He is continue to rest ice and elevate as instructed at his postoperative packet. His blood sugars well-controlled. He is grateful for his care. Denies trauma. Denies constitutional symptoms. No other pedal complaints at this time. Objective Data Objective Data Vital Signs: Vital Signs Temp Pulse Resp BP O2 Del Method 98.2 F 100 18 117/80 Room Air 05/12/23 09:57 05/19/23 09:54 05/19/23 09:54 05/19/23 09:54 05/19/23 09:54 Oxygen Delivery Method Room Air Weight: 116.12 kg Body Mass Index (BMI) 32.8 Physical Exam Narrative Vascular: DP and PT pulses are palpable. CFT is brisk. No erythema appreciated to the left hallux. Nonpitting edema appreciated to the left hallux. Skin temperature gradient is warm to warm from proximal ankle to distal digit. No focal increase is noted. Neurological: Light touch is intact. Protective sensation is absent. Patient does not respond to painful stimuli. Dermatological: Incision is well coapted to the medial aspect of the left hallux with suture. No evidence of erythema or proximal streaking or sign of infection. No evidence of surgical wound dehiscence. Graft is intact with Adaptic, and Steri-Strips. Musculoskeletal: Increased range of motion to the first metatarsal phalangeal joint. No pain with calf compression. Debridement Note Debridement Note Post-Debridement Measurements and Additional Note: Post-Debridement Measurements/Treatment ANA LUISA - Nurse 1 - General Ulcer Assessment Start: 05/12/23 09:55 Freq: Status: Active Protocol: LCEXT Activity Type Activity Date Activity User E-sign Co-sign Detail Recorded Client Recorded Date Recorded By Document 05/12/23 09:57 PL Tablet 05/12/23 10:00 PL Document 05/19/23 09:54 KW Desktop 05/19/23 10:04 KW 05/12/23 05/19/23 09:57 09:54 - Today's Visit Information Type of service Follow-up Visit Follow-up Visit (Physician/PROFESSOR OF RELIGION (Physician/PROFESSOR OF RELIGION ) ) Arrival Mode Ambulatory Ambulatory,Cane Transfer Assistance None Accompanied by Patient Identification Verified (Name & Yes Yes ) Patient Requires Transmission-Based No Precautions Height and Weight Body Mass Index (BMI) 32.8 32.8 BMI Classification Obese Obese Vital Signs Temperature (97.8 F-99.1 F) 98.2 F Temperature Source Temporal Pulse Rate (60-100) 88 100 Pulse Location Monitor Respiratory Rate (12-18) 18 18 Respiratory rate source Observation Oxygen Delivery Method Room Air Blood Pressure (90/60-120/80) 130/72 H 117/80 Blood Pressure Mean (mm Hg) 91 92 Source Monitor Position Sitting Blood Pressure Location Left Arm History Since Last Visit- (Skip if this is Patient's initial visit) Have you changed medications since your No last visit? Any new allergies or adverse reactions No Had a fall/change in ADL's that may No increase risk of falls Signs or symptoms of abuse and/or No neglect since last visit Have you been in the hospital since your No Yes last visit? Has dressing in place as prescribed Yes Yes Has compression in place as prescribed N/A Yes Has offloadiing in place as prescribed N/A Yes Experienced any changes in pain level or No No management Left Footwear Surgical Shoe with pressure relief insole Right Footwear Regular Shoe Pain Scale: 0-10 Numeric Is Patient Pain Free? Yes Yes - Nurse 1 - General Ulcer Measurement Start: 05/12/23 09:55 Freq: Status: Active Protocol: Activity Type Activity Date Activity User E-sign Co-sign Detail Recorded Client Recorded Date Recorded By Document 05/12/23 09:57 PL Tablet 05/12/23 10:00 PL Document 05/19/23 09:54 KW Desktop 05/19/23 10:04 KW 05/12/23 05/19/23 09:57 09:54 Wound Center Nurse 1 #1- L PLANTAR HALLUX -Current Size (cm) - Length 1.0 0.1 -Current Size (cm) - Width 0.5 0.1 -Current Size (cm) - Depth 0.3 0.1 -Total Square Cm 0.50 0.01 -Date of Last Picture (Recall this 05/19/23 field) -Photo Taken No Yes -Exudate Amt Medium -Exudate Type Serosanguineous -Granulation Amt Medium (34-66%) -Granulation Quality Pale -Slough/Fibrin No -Necrosis Amt Medium (34-66%) -Necrotic Tissue Type Adherent Slough -Texture (Sarah-wound Skin Appearance) Assessed -Moisture (Sarah-wound Skin Appearance) Assessed -Color (Sarah-wound Skin Appearance) Assessed -Temperature (Sarah-wound Skin No Abnormality Appearance) (Pt Warm) -Tenderness on Palpation (Sarah-wound No Skin Appearance) -Ulcer Cleansing Soap and Water -Foul Odor after Cleansing No -Anesthetic Used 5% Lidocaine Gel -Wound Comment(s) sutures intact, adaptic/steris intact WC - Nurse 2 - General Ulcer CM Notes Start: 05/12/23 09:55 Freq: Status: Active Protocol: Activity Type Activity Date Activity User E-sign Co-sign Detail Recorded Client Recorded Date Recorded By Document 05/12/23 10:05 [employer] Laptop 05/12/23 10:09 Document 05/19/23 10:22 Laptop 05/19/23 10:23 05/12/23 05/19/23 10:05 10:22 Wound Center Nurse 2 #1- L PLANTAR HALLUX -Time 10:05 -Correct Patient Yes No -Correct Side, Site, Position Yes No -Correct Procedure Yes No -Procedure Performed Yes No -Type of Procedure Debridement -Clinical Debridement Subcutaneous -Tissue Removed Subcutaneous -Post Debridement (cm) - Length 1.5 0.1 -Post Debridement (cm) - Width 0.6 0.1 -Post Debridement (cm) - Depth 0.2 0.1 -Total Square (Post) (cm) 0.90 0.01 -Area of Debridement (cm) - Length 1.5 0.1 -Area of Debridement (cm) - Width 0.6 0.1 -Total Square (Area) (cm) 0.90 0.01 -Tunneling No -Undermining/Tunneling No -Circular Undermining No -Wound/Ulcer Outcome Not Healed Not Healed -Ulcer Cleansing Rinsed/ Irrigated with Saline -Foul Odor after Cleansing No -Bioengineered Tissue No -Bleeding Controlled with Pressure -Treatment Response Procedure Tolerated Well -Offloading No -Debridement - Subq, 1st 20sq cm Yes Pain Scale: 0-10 Numeric Is Patient Pain Free? Yes Yes - Nurse 3 - General Ulcer D/C NN Start: 05/12/23 09:55 Freq: Status: Active Protocol: Activity Type Activity Date Activity User E-sign Co-sign Detail Recorded Client Recorded Date Recorded By Document 05/12/23 10:19 PL Tablet 05/12/23 10:20 PL 05/12/23 10:19 Wound Care Center Nurse 3 #1- L PLANTAR HALLUX -Ulcer Cleansing Rinsed/ Irrigated with Saline -Foul Odor after Cleansing No -Other Dressing Melinda, -Primary Dressing Covered/Secured with Dry Gauze & Roll Gauze, Secured with Tape Pain Scale: 0-10 Numeric Is Patient Pain Free? Yes WC - Visit Discharge Discharge Condition Stable Ambulatory Status Ambulatory Transportation Private Auto Assessment/Plan Assessment/Plan (1) Non-pressure chronic ulcer of other part of left foot with fat layer exposed: CODE(S): L97.522 - Non-pressure chronic ulcer of other part of left foot with fat layer exposed PLAN: Patient was examined and evaluated. All findings were discussed with the patient. All questions were answered to the patient's satisfaction. Patient is status post left foot surgery consisting of left hallux IPJ arthroplasty, surgical skin graft site prep with application of skin graft substitute. DOS: 05/14/2023. Patient is recovering well with no sign of infection. Incision was dressed with Betadine soaked Adaptic, dry sterile dressing and a single layer Cowart compression bandage was donned left lower extremity. Surgical shoe donned. Patient to be partial weightbearing to left heel. Full weightbearing to right lower extremity. Continue strict low sugar control. Follow-up at the wound care center with Dr. Fajardo in 1 week. (2) Other deformities of toe(s) (acquired), left foot: CODE(S): M20.5X2 - Other deformities of toe(s) (acquired), left foot
[2023-05-26 10:10] VITALS: BP 126/68; PULSE 105; RESP 16; TEMP 35.9; BMI 32.8
--- NOTE | 2023-05-26 11:47 | PCM.WC.PN ---
History of Present Illness Date of Service: 05/26/23 Chief Complaint: Left foot wound History of Wound: Left foot wound for 5 months Subjective Subjective Mr. Sherman is a 58-year-old diabetic male presenting to clinic today for follow-up status post left lower extremity IPJ arthroplasty, surgical skin graft site prep with application of skin graft substitute. Date of surgery: 05/14/2023. Patient admits he has no pain during today's visit. Patient does admit he has been weightbearing and walking more than usual since being in the postoperative phase. Overall he is grateful for his care. He has kept his postoperative dressing clean dry and intact. He is continue to rest ice and elevate as instructed at his postoperative packet. His blood sugars well-controlled. He is grateful for his care. Denies trauma. Denies constitutional symptoms. No other pedal complaints at this time. Objective Data Objective Data Vital Signs: Vital Signs Temp Pulse Resp BP O2 Del Method 96.7 F L 105 H 16 126/68 H Room Air 05/26/23 10:10 05/26/23 10:10 05/26/23 10:10 05/26/23 10:10 05/26/23 10:10 Oxygen Delivery Method Room Air Weight: 116.12 kg Body Mass Index (BMI) 32.8 Physical Exam Narrative Vascular: DP and PT pulses are palpable. CFT is brisk. Evidence of erythema to the left hallux. Nonpitting edema appreciated to the left hallux. Skin temperature gradient is warm to warm from proximal ankle to distal digit. Evidence of serous fluid is drainage to one of the stitches to the left hallux. No focal increase is noted. Neurological: Light touch is intact. Protective sensation is absent. Patient does not respond to painful stimuli. Dermatological: Incision is well coapted to the medial aspect of the left hallux with suture. Blanchable erythema to the incision with evidence of serous drainage.. No evidence of surgical wound dehiscence. Graft is intact with Adaptic, and Steri-Strips. Musculoskeletal: Increased range of motion to the first metatarsal phalangeal joint. No pain with calf compression Debridement Note Debridement Note Post-Debridement Measurements and Additional Note: Post-Debridement Measurements/Treatment ANA LUISA - Nurse 1 - General Ulcer Assessment Start: 05/12/23 09:55 Freq: Status: Active Protocol: ANA LUISA.LOWEXT Activity Type Activity Date Activity User E-sign Co-sign Detail Recorded Client Recorded Date Recorded By Document 05/12/23 09:57 PL Tablet 05/12/23 10:00 PL Document 05/19/23 09:54 KW Desktop 05/19/23 10:04 KW Document 05/26/23 10:10 GM Desktop 05/26/23 10:12 GM 05/12/23 05/19/23 05/26/23 09:57 09:54 10:10 WC - Today's Visit Information Type of service Follow-up Visit Follow-up Visit Follow-up Visit (Physician/GREEN HIDE INSPECTOR (Physician/GREEN HIDE INSPECTOR (Physician/GREEN HIDE INSPECTOR ) ) ) Arrival Mode Ambulatory Ambulatory,Cane Ambulatory Transfer Assistance None Accompanied by Patient Identification Verified (Name & Yes Yes Yes ) Patient Requires Transmission-Based No Precautions Height and Weight Body Mass Index (BMI) 32.8 32.8 32.8 BMI Classification Obese Obese Obese Vital Signs Temperature (97.8 F-99.1 F) 98.2 F 96.7 F L Temperature Source Temporal Temporal Pulse Rate (60-100) 88 100 105 H Pulse Location Monitor Monitor Respiratory Rate (12-18) 18 18 16 Respiratory rate source Observation Observation Oxygen Delivery Method Room Air Room Air Blood Pressure (90/60-120/80) 130/72 H 117/80 126/68 H Blood Pressure Mean (mm Hg) 91 92 87 Source Monitor Monitor Position Sitting Sitting Blood Pressure Location Left Arm Left Arm History Since Last Visit- (Skip if this is Patient's initial visit) Have you changed medications since your No No last visit? Any new allergies or adverse reactions No No Had a fall/change in ADL's that may No No increase risk of falls Signs or symptoms of abuse and/or No No neglect since last visit Have you been in the hospital since your No Yes No last visit? Has dressing in place as prescribed Yes Yes Yes Has compression in place as prescribed N/A Yes Yes Has offloadiing in place as prescribed N/A Yes Yes Experienced any changes in pain level or No No No management Left Footwear Surgical Shoe Surgical Shoe with pressure with pressure relief insole relief insole Right Footwear Regular Shoe Regular Shoe Pain Scale: 0-10 Numeric Is Patient Pain Free? Yes Yes Yes - Nurse 1 - General Ulcer Measurement Start: 05/12/23 09:55 Freq: Status: Active Protocol: Activity Type Activity Date Activity User E-sign Co-sign Detail Recorded Client Recorded Date Recorded By Document 05/12/23 09:57 PL Tablet 05/12/23 10:00 PL Document 05/19/23 09:54 KW Desktop 05/19/23 10:04 KW Document 05/26/23 10:10 GM Desktop 05/26/23 10:12 GM 05/12/23 05/19/23 05/26/23 09:57 09:54 10:10 Wound Center Nurse 1 #1- L PLANTAR HALLUX -Combined with other wound No -Current Size (cm) - Length 1.0 0.1 -Current Size (cm) - Width 0.5 0.1 -Current Size (cm) - Depth 0.3 0.1 -Total Square Cm 0.50 0.01 -Date of Last Picture (Recall this 05/19/23 field) -Photo Taken No Yes No -Tunneling No -Undermining/Tunneling No -Circular Undermining No -Exudate Amt Medium -Exudate Type Serosanguineous -Granulation Amt Medium (34-66%) -Granulation Quality Pale -Slough/Fibrin No -Necrosis Amt Medium (34-66%) -Necrotic Tissue Type Adherent Slough -Texture (Sarah-wound Skin Appearance) Assessed -Moisture (Sarah-wound Skin Appearance) Assessed -Color (Sarah-wound Skin Appearance) Assessed -Temperature (Sarah-wound Skin No Abnormality Appearance) (Pt Warm) -Tenderness on Palpation (Sarah-wound No Skin Appearance) -Ulcer Cleansing Soap and Water Rinsed/ Irrigated with Saline -Foul Odor after Cleansing No No -Anesthetic Used 5% Lidocaine Gel -Wound Comment(s) sutures intact, adaptic/steris intact WC - Nurse 2 - General Ulcer CM Notes Start: 05/12/23 09:55 Freq: Status: Active Protocol: Activity Type Activity Date Activity User E-sign Co-sign Detail Recorded Client Recorded Date Recorded By Document 05/12/23 10:05 Laptop 05/12/23 10:09 Document 05/19/23 10:22 Laptop 05/19/23 10:23 Document 05/26/23 10:19 Laptop 05/26/23 10:20 05/12/23 05/19/23 05/26/23 10:05 10:22 10:19 Wound Center Nurse 2 #1- L PLANTAR HALLUX -Time 10:05 -Correct Patient Yes No No -Correct Side, Site, Position Yes No No -Correct Procedure Yes No No -Procedure Performed Yes No No -Type of Procedure Debridement -Clinical Debridement Subcutaneous -Tissue Removed Subcutaneous -Post Debridement (cm) - Length 1.5 0.1 0 -Post Debridement (cm) - Width 0.6 0.1 0 -Post Debridement (cm) - Depth 0.2 0.1 0 -Total Square (Post) (cm) 0.90 0.01 0 -Area of Debridement (cm) - Length 1.5 0.1 0 -Area of Debridement (cm) - Width 0.6 0.1 0 -Total Square (Area) (cm) 0.90 0.01 0 -Tunneling No -Undermining/Tunneling No -Circular Undermining No -Wound/Ulcer Outcome Not Healed Not Healed Healed- Graft -Ulcer Cleansing Rinsed/ Irrigated with Saline -Foul Odor after Cleansing No -Bioengineered Tissue No -Bleeding Controlled with Pressure -Treatment Response Procedure Tolerated Well -Offloading No -Debridement - Subq, 1st 20sq cm Yes Pain Scale: 0-10 Numeric Is Patient Pain Free? Yes Yes Yes - Nurse 3 - General Ulcer D/C NN Start: 05/12/23 09:55 Freq: Status: Active Protocol: Activity Type Activity Date Activity User E-sign Co-sign Detail Recorded Client Recorded Date Recorded By Document 05/12/23 10:19 PL Tablet 05/12/23 10:20 PL Document 05/26/23 10:28 Laptop 05/26/23 10:28 05/12/23 05/26/23 10:19 10:28 Wound Care Center Nurse 3 #1- L PLANTAR HALLUX -Ulcer Cleansing Rinsed/ Irrigated with Saline -Foul Odor after Cleansing No -Other Dressing Melinda, -Primary Dressing Covered/Secured with Dry Gauze & Roll Gauze, Secured with Tape Left -Tubular Bandage Single Layer -Size of Tubigrip Used Size D -Size D ($) 1 Pain Scale: 0-10 Numeric Is Patient Pain Free? Yes Yes - Visit Discharge Discharge Condition Stable Stable Ambulatory Status Ambulatory Ambulatory Transportation Private Auto Private Auto Medication Reconcilliation completed & No provided to patient/care provider Clinical Summary of Care Provided No Notes: betadine gauze to incision site covered in dry gauze Assessment/Plan Assessment/Plan (1) Cellulitis of left toe: CODE(S): L03.032 - Cellulitis of left toe PLAN: Patient was examined and evaluated. All findings were discussed with the patient. All questions were answered to the patient's satisfaction. Patient is recovering well from his left hallux surgery. At this time the patient's wound is healed. There is evidence of drainage which is concerning for a seroma to the left hallux as well as possible cellulitis. The patient will be placed on doxycycline 100 mg twice daily for 14 days for antibiotic coverage. Patient was understanding of why he was being placed on an antibiotic. He is continue strict blood sugar control. Patient is to watch his ambulation as he stated he was increasing his walking more than normal. I asked that he would continue to rest and elevate his left lower extremity for the next week until he follow-up in 1 week. Follow-up at the wound care center with Dr. Fajardo in 1 week. (2) Non-pressure chronic ulcer of other part of left foot with fat layer exposed: CODE(S): L97.522 - Non-pressure chronic ulcer of other part of left foot with fat layer exposed
[2023-06-02 10:00] VITALS: BP 135/73; PULSE 106; RESP 18; TEMP 35.7; BMI 32.8
--- NOTE | 2023-06-02 10:23 | PCM.WC.PN ---
History of Present Illness Date of Service: 06/02/23 Chief Complaint: Left foot wound History of Wound: Left foot wound for 5 months Subjective Subjective Mr. Sherman is a 58-year-old diabetic male presenting to clinic today for follow-up status post left lower extremity IPJ arthroplasty, surgical skin graft site prep with application of skin graft substitute. Date of surgery: 05/14/2023. Patient admits he has no pain during today's visit. Patient does admit he has been weightbearing and walking more than usual since being in the postoperative phase. Overall he is grateful for his care. He has kept his postoperative dressing clean dry and intact. He is continue to rest ice and elevate as instructed at his postoperative packet. His blood sugars well-controlled. He is grateful for his care. Denies trauma. Denies constitutional symptoms. No other pedal complaints at this time. Objective Data Objective Data Vital Signs: Vital Signs Temp Pulse Resp BP O2 Del Method 96.2 F L 106 H 18 135/73 H Room Air 06/02/23 10:00 06/02/23 10:00 06/02/23 10:00 06/02/23 10:06/02/23 10:00 Oxygen Delivery Method Room Air Weight: 116.12 kg Body Mass Index (BMI) 32.8 Physical Exam Narrative Vascular: DP and PT pulses are palpable. CFT is brisk. Evidence of erythema to the left hallux. Nonpitting edema appreciated to the left hallux. Skin temperature gradient is warm to warm from proximal ankle to distal digit. Evidence of serous fluid is drainage to one of the stitches to the left hallux. No focal increase is noted. Neurological: Light touch is intact. Protective sensation is absent. Patient does not respond to painful stimuli. Dermatological: Incision is well coapted to the medial aspect of the left hallux with suture. Blanchable erythema to the incision with evidence of serous drainage.. No evidence of surgical wound dehiscence. Graft is intact with Adaptic, and Steri-Strips. Musculoskeletal: Increased range of motion to the first metatarsal phalangeal joint. No pain with calf compression Debridement Note Debridement Note Post-Debridement Measurements and Additional Note: Post-Debridement Measurements/Treatment ANA LUISA - Nurse 1 - General Ulcer Assessment Start: 05/12/23 09:55 Freq: Status: Active Protocol: LOWEXT Activity Type Activity Date Activity User E-sign Co-sign Detail Recorded Client Recorded Date Recorded By Document 05/12/23 09:57 PL Tablet 05/12/23 10:00 PL Document 05/19/23 09:54 KW Desktop 05/19/23 10:04 KW Document 05/26/23 10:10 GM Desktop 05/26/23 10:12 GM Document 06/02/23 10:00 KW Desktop 06/02/23 10:01 KW 05/12/23 05/19/23 05/26/23 09:57 09:54 10:10 - Today's Visit Information Type of service Follow-up Visit Follow-up Visit Follow-up Visit (Physician/PLUG MACHINE OPERATOR (Physician/PLUG MACHINE OPERATOR (Physician/PLUG MACHINE OPERATOR ) ) ) Arrival Mode Ambulatory Ambulatory,Cane Ambulatory Transfer Assistance None Accompanied by Patient Identification Verified (Name & Yes Yes Yes ) Patient Requires Transmission-Based No Precautions Height and Weight Body Mass Index (BMI) 32.8 32.8 32.8 BMI Classification Obese Obese Obese Vital Signs Temperature (97.8 F-99.1 F) 98.2 F 96.7 F L Temperature Source Temporal Temporal Pulse Rate (60-100) 88 100 105 H Pulse Location Monitor Monitor Respiratory Rate (12-18) 18 18 16 Respiratory rate source Observation Observation Oxygen Delivery Method Room Air Room Air Blood Pressure (90/60-120/80) 130/72 H 117/80 126/68 H Blood Pressure Mean (mm Hg) 91 92 87 Source Monitor Monitor Position Sitting Sitting Blood Pressure Location Left Arm Left Arm History Since Last Visit- (Skip if this is Patient's initial visit) Have you changed medications since your No No last visit? Any new allergies or adverse reactions No No Had a fall/change in ADL's that may No No increase risk of falls Signs or symptoms of abuse and/or No No neglect since last visit Have you been in the hospital since your No Yes No last visit? Has dressing in place as prescribed Yes Yes Yes Has compression in place as prescribed N/A Yes Yes Has offloadiing in place as prescribed N/A Yes Yes Experienced any changes in pain level or No No No management Left Footwear Surgical Shoe Surgical Shoe with pressure with pressure relief insole relief insole Right Footwear Regular Shoe Regular Shoe Pain Scale: 0-10 Numeric Is Patient Pain Free? Yes Yes Yes 06/02/23 10:00 - Today's Visit Information Type of service Follow-up Visit (Physician/PLUG MACHINE OPERATOR ) Arrival Mode Ambulatory,Cane Transfer Assistance Accompanied by Patient Identification Verified (Name & Yes ) Patient Requires Transmission-Based Precautions Height and Weight Body Mass Index (BMI) 32.8 BMI Classification Obese Vital Signs Temperature (97.8 F-99.1 F) 96.2 F L Temperature Source Temporal Pulse Rate (60-100) 106 H Pulse Location Monitor Respiratory Rate (12-18) 18 Respiratory rate source Observation Oxygen Delivery Method Room Air Blood Pressure (90/60-120/80) 135/73 H Blood Pressure Mean (mm Hg) 93 Source Monitor Position Semi-Fowlers Blood Pressure Location Left Arm History Since Last Visit- (Skip if this is Patient's initial visit) Have you changed medications since your No last visit? Any new allergies or adverse reactions No Had a fall/change in ADL's that may No increase risk of falls Signs or symptoms of abuse and/or No neglect since last visit Have you been in the hospital since your No last visit? Has dressing in place as prescribed No Has compression in place as prescribed Yes Has offloadiing in place as prescribed Yes Experienced any changes in pain level or No management Left Footwear Surgical Shoe with pressure relief insole Right Footwear Regular Shoe Pain Scale: 0-10 Numeric Is Patient Pain Free? Yes - Nurse 1 - General Ulcer Measurement Start: 05/12/23 09:55 Freq: Status: Active Protocol: Activity Type Activity Date Activity User E-sign Co-sign Detail Recorded Client Recorded Date Recorded By Document 05/12/23 09:57 PL Tablet 05/12/23 10:00 PL Document 05/19/23 09:54 KW Desktop 05/19/23 10:04 KW Document 05/26/23 10:10 GM Desktop 05/26/23 10:12 GM Document 06/02/23 10:01 KW Desktop 06/02/23 10:01 KW 05/12/23 05/19/23 05/26/23 09:57 09:54 10:10 Wound Center Nurse 1 #1- L PLANTAR HALLUX -Combined with other wound No -Current Size (cm) - Length 1.0 0.1 -Current Size (cm) - Width 0.5 0.1 -Current Size (cm) - Depth 0.3 0.1 -Total Square Cm 0.50 0.01 -Date of Last Picture (Recall this 05/19/23 field) -Photo Taken No Yes No -Tunneling No -Undermining/Tunneling No -Circular Undermining No -Exudate Amt Medium -Exudate Type Serosanguineous -Granulation Amt Medium (34-66%) -Granulation Quality Pale -Slough/Fibrin No -Necrosis Amt Medium (34-66%) -Necrotic Tissue Type Adherent Slough -Texture (Sarah-wound Skin Appearance) Assessed -Moisture (Sarah-wound Skin Appearance) Assessed -Color (Sarah-wound Skin Appearance) Assessed -Temperature (Sarah-wound Skin No Abnormality Appearance) (Pt Warm) -Tenderness on Palpation (Sarah-wound No Skin Appearance) -Ulcer Cleansing Soap and Water Rinsed/ Irrigated with Saline -Foul Odor after Cleansing No No -Anesthetic Used 5% Lidocaine Gel -Wound Comment(s) sutures intact, adaptic/steris intact Lower Limb Edema Present 06/02/23 10:01 Wound Center Nurse 1 #1- L PLANTAR HALLUX -Combined with other wound -Current Size (cm) - Length -Current Size (cm) - Width -Current Size (cm) - Depth -Total Square Cm -Date of Last Picture (Recall this field) -Photo Taken -Tunneling -Undermining/Tunneling -Circular Undermining -Exudate Amt -Exudate Type -Granulation Amt -Granulation Quality -Slough/Fibrin -Necrosis Amt -Necrotic Tissue Type -Texture (Sarah-wound Skin Appearance) -Moisture (Sarah-wound Skin Appearance) -Color (Sarah-wound Skin Appearance) -Temperature (Sarah-wound Skin Appearance) -Tenderness on Palpation (Sarah-wound Skin Appearance) -Ulcer Cleansing -Foul Odor after Cleansing -Anesthetic Used -Wound Comment(s) Lower Limb Edema Present NA - Nurse 2 - General Ulcer CM Notes Start: 05/12/23 09:55 Freq: Status: Active Protocol: Activity Type Activity Date Activity User E-sign Co-sign Detail Recorded Client Recorded Date Recorded By Document 05/12/23 10:05 Laptop 05/12/23 10:09 Document 05/19/23 10:22 Laptop 05/19/23 10:23 Document 05/26/23 10:19 Laptop 05/26/23 10:20 JF Document 06/02/23 10:06 JF Laptop 06/02/23 10:08 JF 05/12/23 05/19/23 05/26/23 10:05 10:22 10:19 Wound Center Nurse 2 #1- L PLANTAR HALLUX -Time 10:05 -Correct Patient Yes No No -Correct Side, Site, Position Yes No No -Correct Procedure Yes No No -Procedure Performed Yes No No -Type of Procedure Debridement -Clinical Debridement Subcutaneous -Tissue Removed Subcutaneous -Post Debridement (cm) - Length 1.5 0.1 0 -Post Debridement (cm) - Width 0.6 0.1 0 -Post Debridement (cm) - Depth 0.2 0.1 0 -Total Square (Post) (cm) 0.90 0.01 0 -Area of Debridement (cm) - Length 1.5 0.1 0 -Area of Debridement (cm) - Width 0.6 0.1 0 -Total Square (Area) (cm) 0.90 0.01 0 -Tunneling No -Undermining/Tunneling No -Circular Undermining No -Wound/Ulcer Outcome Not Healed Not Healed Healed- Graft -Ulcer Cleansing Rinsed/ Irrigated with Saline -Foul Odor after Cleansing No -Bioengineered Tissue No -Bleeding Controlled with Pressure -Treatment Response Procedure Tolerated Well -Offloading No -Debridement - Subq, 1st 20sq cm Yes Pain Scale: 0-10 Numeric Is Patient Pain Free? Yes Yes Yes 06/02/23 10:06 Wound Center Nurse 2 #1- L PLANTAR HALLUX -Time -Correct Patient -Correct Side, Site, Position -Correct Procedure -Procedure Performed -Type of Procedure -Clinical Debridement -Tissue Removed -Post Debridement (cm) - Length -Post Debridement (cm) - Width -Post Debridement (cm) - Depth -Total Square (Post) (cm) -Area of Debridement (cm) - Length -Area of Debridement (cm) - Width -Total Square (Area) (cm) -Tunneling -Undermining/Tunneling -Circular Undermining -Wound/Ulcer Outcome -Ulcer Cleansing -Foul Odor after Cleansing -Bioengineered Tissue -Bleeding Controlled with -Treatment Response -Offloading -Debridement - Subq, 1st 20sq cm Pain Scale: 0-10 Numeric Is Patient Pain Free? Yes - Nurse 3 - General Ulcer D/C NN Start: 05/12/23 09:55 Freq: Status: Active Protocol: Activity Type Activity Date Activity User E-sign Co-sign Detail Recorded Client Recorded Date Recorded By Document 05/12/23 10:19 PL Tablet 05/12/23 10:20 PL Document 05/26/23 10:28 JF Laptop 05/26/23 10:28 JF Document 06/02/23 10:11 JF Laptop 06/02/23 10:12 JF 05/12/23 05/26/23 06/02/23 10:19 10:28 10:11 Wound Care Center Nurse 3 #1- L PLANTAR HALLUX -Ulcer Cleansing Rinsed/ Irrigated with Saline -Foul Odor after Cleansing No -Other Dressing Melinda, -Primary Dressing Covered/Secured with Dry Gauze & Roll Gauze, Secured with Tape Left -Lotion applied to leg before Yes compression wrap -Tubular Bandage Single Layer Single Layer -Size of Tubigrip Used Size D Size D -Size D ($) 1 0 Pain Scale: 0-10 Numeric Is Patient Pain Free? Yes Yes Yes WC - Visit Discharge Discharge Condition Stable Stable Stable Ambulatory Status Ambulatory Ambulatory Ambulatory,Cane Transportation Private Auto Private Auto Private Auto Medication Reconcilliation completed & No Yes provided to patient/care provider Clinical Summary of Care Provided No Yes Notes: betadine gauze to incision site covered in dry gauze Assessment/Plan Assessment/Plan (1) Non-pressure chronic ulcer of other part of left foot with fat layer exposed: CODE(S): L97.522 - Non-pressure chronic ulcer of other part of left foot with fat layer exposed PLAN: Patient was examined and evaluated. All findings were discussed with the patient. All questions were answered to the patient's satisfaction. The patient has recovered well from his left foot hallux surgery. The patient's full-thickness wound to the bottom of his left hallux is now healed. Betadine was applied to the incision and the sutures removed out incident. Adhesive prep/Skin-Prep was placed on the left hallux followed by half-inch Steri-Strip. Patient was instructed leave the Steri-Strips intact. He can begin to shower not soak beginning tomorrow. The left lower extremity was dressed with gauze and tape followed by single-layer Tubigrip. Patient was instructed to remove the gauze but leave the Steri-Strips intact starting tomorrow when he would shower and not soak. Patient was educated on strict blood sugar control. He can get out of the surgical shoe and wear his double depth croc and ambulate as tolerated and was educated to be aware that he is neuropathic and to continue to check his feet twice per day. Patient was understanding of this. Follow-up at the wound care center with Dr. Fajardo in 2 week. (2) Controlled type 2 diabetes mellitus with diabetic polyneuropathy: CODE(S): E11.42 - Type 2 diabetes mellitus with diabetic polyneuropathy
== END 2023-06-03 23:59 | disposition home or self-care (01) ==
LOC: WC 10:00
PROVIDERS: PCP Family Medicine; Referring Provider Nurse Practitioner Family; Visit Provider Podiatrist Foot & Ankle Surgery
DX: E11.621 Type 2 diabetes mellitus with foot ulcer (principal); L97.522 Non-pressure chronic ulcer of other part of left foot with fat layer exposed; E11.42 Type 2 diabetes mellitus with diabetic polyneuropathy; L03.032 Cellulitis of left toe; M20.5X2 Other deformities of toe(s) (acquired), left foot; Z79.82 Long term (current) use of aspirin; Z79.84 Long term (current) use of oral hypoglycemic drugs; Z79.899 Other long term (current) drug therapy
CPT/HCPCS: 11042; 99213; G0463

== ENCOUNTER 2023-06-16 10:12 | Outpatient (RCR) | payer OTHER, SELFPAY ==
[2023-06-04 00:18] VITALS: BP 135/73; PULSE 106; RESP 18; TEMP 35.7; BMI 32.8
[2023-06-16 10:24] VITALS: BP 151/90; PULSE 91; RESP 16; TEMP 36; BMI 32.8
--- NOTE | 2023-06-16 12:12 | PCM.WC.PN ---
History of Present Illness Date of Service: 06/16/23 Chief Complaint: Left foot wound History of Wound: Left foot wound for 5 months Subjective Subjective Mr. Sherman is a 58-year-old diabetic male presenting to clinic today for follow-up status post left lower extremity IPJ arthroplasty, surgical skin graft site prep with application of skin graft substitute. Date of surgery: 05/14/2023. Patient admits he has no pain during today's visit. Patient does admit he has been weightbearing and walking more than usual since being in the postoperative phase. Overall he is grateful for his care. He has kept his postoperative dressing clean dry and intact. He is continue to rest ice and elevate as instructed at his postoperative packet. His blood sugars well-controlled. He is grateful for his care. Denies trauma. Denies constitutional symptoms. No other pedal complaints at this time. Objective Data Objective Data Vital Signs: Vital Signs Temp Pulse Resp BP O2 Del Method 96.8 F L 91 16 151/90 H Room Air 06/16/23 10:24 06/16/23 10:24 06/16/23 10:24 06/16/23 10:24 06/16/23 10:24 Oxygen Delivery Method Room Air Weight: 116.12 kg Body Mass Index (BMI) 32.8 Physical Exam Narrative Vascular: DP and PT pulses are palpable. CFT is brisk. No erythema. nonpitting edema appreciated to the left hallux. Skin temperature gradient is warm to warm from proximal ankle to distal digit. Neurological: Light touch is intact. Protective sensation is absent. Patient does not respond to painful stimuli. Dermatological: Incision is well coapted and healed to the left hallux. No evidence of surgical wound dehiscence or sign of infection. No erythema or proximal streaking. Musculoskeletal: Increased range of motion to the first metatarsal phalangeal joint. No pain with calf compression Debridement Note Debridement Note Post-Debridement Measurements and Additional Note: Post-Debridement Measurements/Treatment - Nurse 1 - General Ulcer Assessment Start: 06/16/23 10:19 Freq: Status: Active Protocol: LCEXT Activity Type Activity Date Activity User E-sign Co-sign Detail Recorded Client Recorded Date Recorded By Document 06/16/23 10:24 Desktop 06/16/23 10:26 06/16/23 10:24 - Today's Visit Information Type of service Follow-up Visit (Physician/[facility] [employer] [facility] ) Arrival Mode Ambulatory Transfer Assistance None Patient Identification Verified (Name & Yes ) Patient Requires Transmission-Based No Precautions Height and Weight Body Mass Index (BMI) 32.8 BMI Classification Obese Vital Signs Temperature (97.8 F-99.1 F) 96.8 F L Temperature Source Temporal Pulse Rate (60-100) 91 Pulse Location Monitor Respiratory Rate (12-18) 16 Respiratory rate source Observation Oxygen Delivery Method Room Air Blood Pressure (90/60-120/80) 151/90 H Blood Pressure Mean (mm Hg) 110 Source Monitor Position Sitting Blood Pressure Location Left Arm History Since Last Visit- (Skip if this is Patient's initial visit) Have you changed medications since your No last visit? Any new allergies or adverse reactions No Had a fall/change in ADL's that may No increase risk of falls Signs or symptoms of abuse and/or No neglect since last visit Have you been in the hospital since your No last visit? Has dressing in place as prescribed Yes Has compression in place as prescribed N/A Has offloadiing in place as prescribed N/A Experienced any changes in pain level or No management Left Footwear Regular Shoe Pain Scale: 0-10 Numeric Is Patient Pain Free? Yes WC - Nurse 1 - General Ulcer Measurement Start: 06/16/23 10:19 Freq: Status: Active Protocol: Activity Type Activity Date Activity User E-sign Co-sign Detail Recorded Client Recorded Date Recorded By Document 06/16/23 10:24 Desktop 06/16/23 10:26 06/16/23 10:24 Wound Center Nurse 1 #1- L PLANTAR HALLUX -Current Size (cm) - Length 0.1 -Current Size (cm) - Width 0.1 -Current Size (cm) - Depth 0.1 -Total Square Cm 0.01 -Date of Last Picture (Recall this 06/16/23 field) -Photo Taken Yes -Tunneling No -Undermining/Tunneling No -Circular Undermining No -Exudate Amt None Present WC - Nurse 2 - General Ulcer CM Notes Start: 06/16/23 10:19 Freq: Status: Active Protocol: Activity Type Activity Date Activity User E-sign Co-sign Detail Recorded Client Recorded Date Recorded By Document 06/16/23 10:47 Laptop 06/16/23 10:48 06/16/23 10:47 Wound Center Nurse 2 -Correct Patient No -Correct Side, Site, Position No -Correct Procedure No -Procedure Performed No -Post Debridement (cm) - Length 0 -Post Debridement (cm) - Width 0 -Post Debridement (cm) - Depth 0 -Total Square (Post) (cm) 0 -Area of Debridement (cm) - Length 0 -Area of Debridement (cm) - Width 0 -Total Square (Area) (cm) 0 -Wound/Ulcer Outcome Healed- Epithelialized Pain Scale: 0-10 Numeric Is Patient Pain Free? Yes - Nurse 3 - General Ulcer D/C NN Start: 06/16/23 10:19 Freq: Status: Active Protocol: Activity Type Activity Date Activity User E-sign Co-sign Detail Recorded Client Recorded Date Recorded By Document 06/16/23 10:52 Laptop 06/16/23 10:52 06/16/23 10:52 Is Patient Pain Free? Yes WC - Visit Discharge Discharge Condition Stable Ambulatory Status Ambulatory Transportation Private Auto Medication Reconcilliation completed & Yes provided to patient/care provider Clinical Summary of Care Provided Yes Notes: bandaid aplied per Dr Fajardo. Ulcer healed. Assessment/Plan Assessment/Plan (1) Non-pressure chronic ulcer of other part of left foot with fat layer exposed: CODE(S): L97.522 - Non-pressure chronic ulcer of other part of left foot with fat layer exposed PLAN: Patient was examined and evaluated. All findings were discussed with the patient. All questions were answered to the patient's satisfaction. The patient's incision as well as wound to the medial and plantar aspect left hallux is healed. Educated the patient on strict blood sugar control during his postoperative recovery. He was understanding of this. Patient will be discharged from the wound care center as he is healed. Patient will follow-up with Dr. Fajardo in 2 to 3 weeks for follow-up and evaluation and to begin authorization for diabetic shoes and inserts. Patient is grateful for his care and left the wound care center pleased with this visit. Follow-up as needed. (2) Peripheral vascular disease: CODE(S): I73.9 - Peripheral vascular disease, unspecified (3) Controlled type 2 diabetes mellitus with diabetic polyneuropathy: CODE(S): E11.42 - Type 2 diabetes mellitus with diabetic polyneuropathy
--- NOTE | 2023-06-28 08:43 | WC ---
3.13.24 LT GREAT TOE
== END 2023-06-17 15:54 | disposition home or self-care (01) ==
LOC: WC 10:12
PROVIDERS: PCP Family Medicine; Referring Provider Nurse Practitioner Family; Visit Provider Podiatrist Foot & Ankle Surgery
DX: E11.621 Type 2 diabetes mellitus with foot ulcer (principal); L97.522 Non-pressure chronic ulcer of other part of left foot with fat layer exposed; E11.42 Type 2 diabetes mellitus with diabetic polyneuropathy; E11.51 Type 2 diabetes mellitus with diabetic peripheral angiopathy without gangrene; Z79.82 Long term (current) use of aspirin; Z79.899 Other long term (current) drug therapy
CPT/HCPCS: 99213; G0463